=== PATIENT | female | born 1950 | race Caucasian/White ===

== ENCOUNTER 2020-04-07 09:40 | Outpatient (REF) | payer OTHER, SELFPAY ==
--- NOTE | 2020-04-07 | MM_ITS ---
EXAMINATION: MM SCREENING DIGITAL BREAST TOMOSYNTHESIS, BILATERAL CLINICAL INFORMATION: Screening. Asymptomatic. The lifetime risk of breast cancer based on the Tyrer-Cuzick Model is 3%. COMPARISON: Mammography: 04/01/2019, 03/25/2018 TECHNIQUE: Digital breast tomosynthesis is performed in both the craniocaudal and mediolateral oblique views along with computer-aided detection (CAD). Synthesized 2D images are generated from the tomosynthesis. FINDINGS: There are scattered areas of fibroglandular density (ACR BI-RADS breast composition Category b). Parenchymal pattern is similar to prior exams. There is denser tissue composition in the upper outer quadrants as before. There is no significant mass or architectural abnormality or abnormal calcifications. No significant changes. MM/MM tomosynthesis screening BI IMPRESSION: No significant changes from prior studies. ASSESSMENT: BI-RADS 1: Negative RECOMMENDATION: Routine annual mammography screening. This patient's information was entered into a reminder system with a target due date for their next mammogram.
== END 2020-04-07 09:41 | disposition home or self-care (01) ==
LOC: HO.MAMMO 09:40
PROVIDERS: PCP Internal Medicine; Visit Provider Internal Medicine
DX: Z12.31 Encounter for screening mammogram for malignant neoplasm of breast (principal)
CPT/HCPCS: 77063; 77067

== ENCOUNTER 2021-04-19 12:27 | Outpatient (REF) | payer OTHER, SELFPAY ==
--- NOTE | ~2021-04-19 | MM_ITS ---
EXAMINATION: MM SCREENING DIGITAL BREAST TOMOSYNTHESIS, BILATERAL CLINICAL INFORMATION: Screening. Asymptomatic. The lifetime risk of breast cancer based on the Tyrer-Cuzick Model is 3%. COMPARISON: Mammography: 04/07/2020, 04/01/2019, 03/25/2018, 03/06/2017, 03/03/2016 TECHNIQUE: Digital breast tomosynthesis is performed in both the craniocaudal and mediolateral oblique views along with computer-aided detection (CAD). Synthesized 2D images are generated from the tomosynthesis. FINDINGS: There are scattered areas of fibroglandular density (ACR BI-RADS breast composition Category b). Breast tissue composition borders on heterogeneously dense in the upper outer quadrants. There are scattered bilateral stable asymmetries. No developing density. No interval mass or architectural abnormality or abnormal calcifications. The axilla and skin contours are unremarkable. No significant changes from prior exams. MM/MM tomosynthesis screening BI IMPRESSION: No significant changes from prior studies. ASSESSMENT: BI-RADS 2: Benign RECOMMENDATION: Routine annual mammography screening. This patient's information was entered into a reminder system with a target due date for their next mammogram.
== END 2021-04-19 12:28 | disposition home or self-care (01) ==
LOC: HO.MAMMO 12:27
PROVIDERS: PCP Internal Medicine; Visit Provider Internal Medicine
DX: Z12.31 Encounter for screening mammogram for malignant neoplasm of breast (principal)
CPT/HCPCS: 77063; 77067

== ENCOUNTER 2022-09-25 13:01 | Outpatient (REF) | payer OTHER, SELFPAY ==
--- NOTE | ~2022-09-25 | MM_ITS ---
EXAMINATION: MM SCREENING DIGITAL BREAST TOMOSYNTHESIS, BILATERAL CLINICAL INFORMATION: Screening. Asymptomatic. The lifetime risk of breast cancer based on the Tyrer-Cuzick Model is 3.1%. COMPARISON: Mammography: April 19, 2021 and studies dating back to March 03, 2016 TECHNIQUE: Digital breast tomosynthesis is performed in both the craniocaudal and mediolateral oblique views along with computer-aided detection (CAD). Synthesized 2D images are generated from the tomosynthesis. FINDINGS: The breasts are heterogeneously dense, which may obscure small masses (ACR BI-RADS breast composition Category c). There are no significant masses, abnormal calcifications, or other abnormalities. MM/MM tomosynthesis screening BI IMPRESSION: No significant changes from prior exam. ASSESSMENT: BI-RADS 1: Negative RECOMMENDATION: Routine annual mammography screening. This patient's information was entered into a reminder system with a target due date for their next mammogram.
== END 2022-09-25 13:02 | disposition home or self-care (01) ==
LOC: HO.MAMMO 13:01
PROVIDERS: PCP Internal Medicine; Visit Provider Internal Medicine
DX: Z12.31 Encounter for screening mammogram for malignant neoplasm of breast (principal)
CPT/HCPCS: 77063; 77067

== ENCOUNTER 2022-10-16 13:05 | Outpatient (REF) | payer OTHER, SELFPAY ==
[2022-10-16 15:07] LABS: Erythrocyte Sedimentation Rate 18 MM/HR (0-20)
[2022-10-21 10:53] LABS: Immunoglobulin E 65 kU/L (<OR=114)
== END 2022-10-16 13:06 | disposition home or self-care (01) ==
LOC: HO.LAB 13:05
PROVIDERS: PCP Internal Medicine; Visit Provider Hospitalist
DX: J31.0 Chronic rhinitis (principal); R05.3 Chronic cough
CPT/HCPCS: 36415; 82785; 85652; 86003

== ENCOUNTER 2022-10-30 13:45 | Outpatient (REF) | payer OTHER, SELFPAY ==
--- NOTE | 2022-10-30 14:40 | PFT_ITS ---
Forced vital capacity 112%, FEV1 116%, FEV1/FVC ratio 78. FEF 25-75 is 125% and MVV 131%. Post bronchodilator therapy, there is no significant change. Total lung capacity 104% and residual volume 97%. Diffusion capacity 68%. CONCLUSION: Normal pulmonary function test and there is no evidence of obstructive or restrictive pulmonary disorder. Clinical correlation recommended. MD DEMETRIO Link/ADAMS / [id number]
== END 2022-10-30 13:46 | disposition home or self-care (01) ==
LOC: HO.RESP 13:45
PROVIDERS: PCP Internal Medicine; Visit Provider Hospitalist
DX: R05.3 Chronic cough (principal); J31.0 Chronic rhinitis
CPT/HCPCS: 94010; 94727; 94729

== ENCOUNTER 2022-12-16 13:59 | Outpatient (REF) | payer OTHER, SELFPAY ==
--- NOTE | ~2022-12-16 | XR_ITS ---
EXAMINATION: XR CHEST CLINICAL INFORMATION: Chronic cough COMPARISON: None available. TECHNIQUE: 2 views of the chest were obtained. FINDINGS: Cardia mediastinal silhouette is normal. Clear lungs without consolidation, pleural effusion or pneumothorax. Mild spondylitic changes in the thoracic spine. XR/XR chest 2V IMPRESSION: No acute cardiopulmonary process.
== END 2022-12-16 14:00 | disposition home or self-care (01) ==
LOC: CF 13:59
PROVIDERS: PCP Internal Medicine; Visit Provider Hospitalist
DX: J31.0 Chronic rhinitis (principal); R05.3 Chronic cough
CPT/HCPCS: 71046

== ENCOUNTER 2022-12-16 13:59 | Outpatient (AMB) | payer OTHER, SELFPAY ==
[2022-12-16 14:03] VITALS: BP 128/60; PULSE 89; O2SAT 98; BMI 29.2
--- NOTE | 2022-12-16 14:03 | MHC.OFFVIS ---
Intake Vital Signs 12/16/22 14:03 Height 5 ft 6 in Weight 180 lb 12.465 oz BMI 29.2 BP 128/60 Blood Pressure Location Lt brachial Position Sitting Pulse 89 Pulse Source Pulse Oximeter Pulse Oximetry (%) 98 Oxygen Delivery Method Room Air Intake Visit Reasons: Cough Conference Services Director Required: No Allergies amlodipine Adverse Reaction (Unknown, Verified 12/16/22 14:05) leg cramps losartan Adverse Reaction (Unknown, Verified 12/16/22 14:05) cough nebivolol [Bystolic] Adverse Reaction (Unknown, Verified 12/16/22 14:05) leg edema, coughing MAKSIM inhibitors Adverse Reaction (Unknown, Uncoded 12/16/22 14:05) cough HPI HPI Comments History of Present Illness Details The patient is a 72-year-old woman with a known history high blood pressure. She also had long history of chronic cough. Patient states that she initially started with a cough once she has developed hypertension. Patient started taking hypertensive medications and that was ultimately brought worsening her cough. Subsequently after that she noticed that when she develops a cold or bronchitis that will going to her lungs then ultimately require medications to help with the symptoms. Typically when that happened she will go to an urgent care and she will be evaluated there. Subsequently after that the patient developed COVID-19 and she noticed her cough worsen. The patient has been no better. The patient has taking allergy medications with no significant improvement. She has also use the Tessalon Perles with no significant improvement. The patient does use cough drops however that gives some relief she does complaint of postnasal drip and nasal congestion. Usually worse when she lays flat she denies any significant reflux disease. As far as animals in the house she used to have up dog but many years ago. Denies any significant exposure to any fumes or toxins. She does live in an old house and may likely have mold. 12/16/2022 the patient is here for a pulmonary follow-up visit. The patient overall is doing a little better. After starting the fluticasone nasal spray in the nasal rinsing she was doing a lot better. The cough subsided completely. For about 2 weeks. Then after getting the pulmonary function studies she started coughing up again. Although has not been as significant. She does have a rescue inhaler that she uses as needed. She seemed partial resolution with the inhaler. Her PFTs were reassuring without any evidence of any obstructive nor restrictive ventilatory defects. She does have a mild diffusion impairment does isolated. Her blood work also demonstrated an IgE level of 71 which is high normal. Her allergy testing was negative for all the a common environmental allergens that were checked in the blood. All this is reassuring. The patient definitely has a cough that is related to an upper airway cough syndrome. She is going to start using a 1st generation antihistamine therapy and also could consider cough suppressants to maintain the cough under control. She has not gotten her x-ray. Will go ahead and follow up with the x-ray. If the x-ray is abnormal I will let her know that she will need additional imaging studies. Otherwise will follow-up in the springtime. [facility] Medical History (Updated 12/16/22 @ 23:23 by Peter Main MD) Chronic cough Chronic rhinitis Social History (Updated 10/16/22 @ 13:14 by MIGNON Nails) Patient Tobacco Use Status: Never used Tobacco Review of Systems Const Denies fever(s) Eyes Denies change in vision ENT Reports nasal congestion, Reports nasal discharge and Reports post nasal drip Card Denies chest pain Resp Reports cough GI Denies abdominal pain, Denies dyspepsia and Denies heartburn Musc Reports no additional complaints Skin/Breast Denies rash Neuro Reports no additional complaints Ben/Lymph Denies easy bleeding and Denies easy bruising Physical Exam Vital Signs: Last Vital Signs Pulse 89 12/16/22 14:03 BP 128/60 12/16/22 14:03 Pulse Ox 98 12/16/22 14:03 Oxygen Delivery Method Room Air 12/16/22 14:03 BMI result Body Mass Index 29.2 Const General: comfortable Orientation/consciousness: patient oriented x3 HEENT Head: Yes atraumatic Eyes General: appearance normal, both eyes and all related structures Neck Neck: Yes supple Chest Chest palpation & inspection: normal inspection of the chest Resp Effort & Inspection: normal respiratory effort Auscultation: clear to auscultation bilaterally, no rales, no rhonchi and no wheezes Cardio Rate: regular rate Rhythm: regular rhythm Heart sounds: S1 normal heart sound present and S2 normal heart sound present GI Palpation (GI): Soft to palpation Skin General skin exam: no rashes or lesions noted Neuro General: patient oriented x3 Extrem General: Yes no clubbing, cyanosis or edema Assessment & Plan Assessment & Plan (1) Chronic rhinitis: Code(s): J31.0 - Chronic rhinitis (2) Chronic cough: Comment: ? cough variant asthma. Her PFTs were very good, but then activated her cough after the PFTs. Has a component of upper airway cough syndrome Code(s): R05.3 - Chronic cough Plan continue AARON as needed bloodwork/allergy testing was normal PFTs done only with mild diffusion impairment CXR pending nasal rinsing continue Fluticasone nasal spray HOB elevated reflux diet F/U Spring 2023 Coding Level of Care Code Est Pt Level 4 (89043) Diagnoses Chronic rhinitis J31.0 Chronic cough R05.3 Time Spent (min) 20
== END 2022-12-16 14:29 | disposition home or self-care (01) ==
PROVIDERS: PCP Internal Medicine; Visit Provider Hospitalist
DX: J31.0 Chronic rhinitis (principal); R05.3 Chronic cough
CPT/HCPCS: 99214

== ENCOUNTER 2023-08-18 13:52 | Outpatient (AMB) | payer OTHER, SELFPAY ==
[2023-08-18 13:55] VITALS: BP 150/64; PULSE 74; O2SAT 97; BMI 28.6
--- NOTE | 2023-08-18 13:55 | A.OFFVIS_ITS ---
Intake Vital Signs 08/18/23 13:55 Height 5 ft 6 in Weight 177 lb 7.554 oz BMI 28.6 BP 150/64 H Blood Pressure Location Lt brachial Position Sitting Pulse 74 Pulse Source Pulse Oximeter Pulse Oximetry (%) 97 Oxygen Delivery Method Room Air Intake Visit Reasons: Cough Senior Ui Ux Developer Required: No Agriculture Research Director: Agriculture Research Director offered & declined Accompanied by: Self / Same As Patient Allergies amlodipine Adverse Reaction (Unknown, Verified 08/18/23 13:58) leg cramps losartan Adverse Reaction (Unknown, Verified 08/18/23 13:58) cough nebivolol [Bystolic] Adverse Reaction (Unknown, Verified 08/18/23 13:58) leg edema, coughing MAKSIM inhibitors Adverse Reaction (Unknown, Uncoded 08/18/23 13:58) cough Medication List - Last Reconciled 08/18/23 by Jerri Segovia LPN albuterol sulfate 90 mcg/actuation 2 inhalations inhalation Q6H PRN 30 days ferrous sulfate 325 mg PO DAILY fluticasone propionate 50 mcg/actuation 2 sprays intranasal DAILY glipizide ER 2.5 mg PO DAILY hydrochlorothiazide 12.5 mg PO DAILY metformin ER 500 mg PO BID olmesartan 20 mg PO DAILY pantoprazole 40 mg PO DAILY rosuvastatin 20 mg PO BEDTIME HPI HPI Comments History of Present Illness Details The patient is a 73-year-old woman with a known history high blood pressure. She also had long history of chronic cough. Patient states that she initially started with a cough once she has developed hypertension. Patient started taking hypertensive medications and that was ultimately brought worsening her cough. Subsequently after that she noticed that when she develops a cold or bronchitis that will going to her lungs then ultimately require medications to help with the symptoms. Typically when that happened she will go to an urgent care and she will be evaluated there. Subsequently after that the patient developed COVID-19 and she noticed her cough worsen. The patient has been no better. The patient has taking allergy medications with no significant improvement. She has also use the Tessalon Perles with no significant improvement. The patient does use cough drops however that gives some relief she does complaint of postnasal drip and nasal congestion. Usually worse when she lays flat she denies any significant reflux disease. As far as animals in the house she used to have up dog but many years ago. Denies any significant exposure to any fumes or toxins. She does live in an old house and may likely have mold. 12/16/2022 the patient is here for a pulm onary follow-up visit. The patient overall is doing a little better. After starting the fluticasone nasal spray in the nasal rinsing she was doing a lot better. The cough subsided completely. For about 2 weeks. Then after getting the pulmonary function studies she started coughing up again. Although has not been as significant. She does have a rescue inhaler that she uses as needed. She seemed partial resolution with the inhaler. Her PFTs were reassuring without any evidence of any obstructive nor restrictive ventilatory defects. She does have a mild diffusion impairment does isolated. Her blood work also demonstrated an IgE level of 71 which is high normal. Her allergy testing was negative for all the a common environmental allergens that were checked in the blood. All this is reassuring. The patient definitely has a cough that is related to an upper airway cough syndrome. She is going to start using a 1st generation antihistamine therapy and also could consider cough suppressants to maintain the cough under control. She has not gotten her x-ray. Will go ahead and follow up with the x-ray. If the x-ray is abnormal I will let her know that she will need additional imaging studies. Otherwise will follow-up in the springtime. 08/18/2023 the patient is here for a pulmonary follow-up visit. The patient since we spoke did have an admission to [facility]. She started developing worsening shortness of breath even with minimal activity. Also had increased heart rate. Initially she just thought she just had a respiratory virus. But then took her to [facility]. She was found to have a hemoglobin of 5. She was given 3 units of blood. She did have a GI evaluation. Had a limited colonoscopy. Her EGD demonstrated significant erosive esophagitis. She was placed on a PPI twice a day and her cough is significantly improved. She is trying to continue with the reflux diet and continues to sleep elevated. Right now she understands that her cough is related to his reflux disease. Now that she is on the medication she is doing overall better. Her last chest x-ray was clear. Although she continues to be symptomatic or recurrence we can also consider getting a CT scan of the chest. She will be following up with GI and also with surgery. Still the cause of the anemia is not clear. We did again review her PFTs which demonstrated slight mild diffusion impairment. This is likely the beginning her anemia. Otherwise PFTs were normal. The patient will follow up as needed basis. [facility] Medical History (Updated 08/18/23 @ 21:31 by Peter Main MD) Chronic rhinitis Chronic cough Social History (Updated 08/18/23 @ 14:01 by Jerri Segovia LPN) Patient Tobacco Use Status: Never used Tobacco Smoked in Last 30 Days: No Review of Systems Const Denies fever(s) Eyes Denies change in vision ENT Reports nasal congestion and Reports nasal discharge Card Denies chest pain Resp Reports cough GI Denies abdominal pain, Denies dyspepsia and Denies heartburn Musc Reports no additional complaints Skin/Breast Denies rash Neuro Reports no additional complaints Ben/Lymph Denies easy bleeding and Denies easy bruising Physical Exam Vital Signs: Last Vital Signs Pulse 74 08/18/23 13:55 BP 150/64 H 08/18/23 13:55 Pulse Ox 97 08/18/23 13:55 Oxygen Delivery Method Room Air 08/18/23 13:55 BMI result Body Mass Index 28.6 Const General: comfortable Orientation/consciousness: patient oriented x3 HEENT Head: Yes atraumatic Eyes General: appearance normal, both eyes and all related structures Neck Neck: Yes supple Chest Chest palpation & inspection: normal inspection of the chest Resp Effort & Inspection: normal respiratory effort Auscultation: clear to auscultation bilaterally, no rales, no rhonchi and no wh eezes Cardio Rate: regular rate Rhythm: regular rhythm Heart sounds: S1 normal heart sound present and S2 normal heart sound present GI Palpation (GI): Soft to palpation Skin General skin exam: no rashes or lesions noted Neuro General: patient oriented x3 Extrem General: Yes no clubbing, cyanosis or edema Assessment & Plan Assessment & Plan (1) Chronic rhinitis: Code(s): J31.0 - Chronic rhinitis (2) Chronic cough: Comment: Likely GERD related cough. Possibly pharyngeal/Laryngeal penetration which could also result in reactive airway disease Code(s): R05.3 - Chronic cough Plan continue AARON as needed nasal rinsing HOB elevated continue PPI reflux diet F/U PRN Coding Level of Care Code Est Pt Level 4 (67847) Diagnoses Chronic rhinitis J31.0 Chronic cough R05.3 Time Spent (min) 18
== END 2023-08-18 14:48 | disposition home or self-care (01) ==
PROVIDERS: PCP Internal Medicine; Visit Provider Hospitalist
DX: J31.0 Chronic rhinitis (principal); R05.3 Chronic cough
CPT/HCPCS: 99214

== ENCOUNTER → 2023-08-18 13:52 | Outpatient (BNVA) | payer OTHER, SELFPAY | PROVIDERS: PCP Internal Medicine; Visit Provider Hospitalist ==

== ENCOUNTER 2023-09-24 07:53 | Outpatient (AMB) | payer OTHER, SELFPAY ==
--- NOTE | 2023-09-24 08:02 | A.OFFVIS_ITS ---
Intake Vital Signs 09/24/23 08:14 Height 5 ft 6 in Weight 177 lb 7.554 oz BMI 28.6 Intake Visit Reasons: colonoscopy screening Intake Note: This patient presents for a colonoscopy screening assessment. Pt c/o; reports had a critical lab of hemoglobin of 6, reports had a colonoscopy/EGD August 2023 at [facility], reports will be getting 3 units of blood tomorrow 09/25/2023. School Health Assistant Required: No Accompanied by: Self / Same As Patient Allergies amlodipine Adverse Reaction (Unknown, Verified 09/24/23 08:12) leg cramps losartan Adverse Reaction (Unknown, Verified 09/24/23 08:12) cough nebivolol [Bystolic] Adverse Reaction (Unknown, Verified 09/24/23 08:12) leg edema, coughing MAKSIM inhibitors Adverse Reaction (Unknown, Uncoded 09/24/23 08:12) cough Medication List - Last Reconciled 09/24/23 by Adams Arevalo MD albuterol sulfate 90 mcg/actuation 2 inhalations inhalation Q6H PRN 30 days ferrous sulfate 325 mg PO DAILY fluticasone propionate 50 mcg/actuation 2 sprays intranasal DAILY glipizide ER 2.5 mg PO DAILY hydrochlorothiazide 12.5 mg PO DAILY metformin ER 500 mg PO BID olmesartan 20 mg PO DAILY pantoprazole 40 mg PO DAILY rosuvastatin 20 mg PO BEDTIME HPI colonoscopy screening HPI Details 73-year-old female referred for colonosc opy. She actually was admitted to [facility] last month because of palpitations and shortness of breath. She was noted to have severe anemia with hemoglobin of 6 at that time. She was transfused 2 units. She had an endoscopy which showed some gastritis. She had a colonoscopy but had poor bowel prep so she was told to repeat this. She otherwise says that she did not really have any abdominal pain or any GI complaints. She did not have any blood in her stools. She says that she only had some dark stools when she took some iron pills but this had stopped after she discontinued her iron pills I did her colonoscopy in 2019. I removed 2 polyps. One was 1 cm in size and I had recommended a follow-up in 5 years She had a repeat H and H's this week and showed that hemoglobin was 6 again so she is to undergo transfusion tomorrow with Dr. Restrepo. She denies any family history of colon cancer. PFSH Medical History (Updated 09/24/23 @ 08:35 by Adams Arevalo MD) Anemia Chronic rhinitis Chronic cough Surgical History History of colonoscopy (~08/2023) History of colonoscopy (~2019) Social History Patient Tobacco Use Status: Never used Tobacco Review of Systems Const Denies chills and Denies fever(s) Card Denies chest pain, Denies dyspnea and Reports dyspnea on exertion Resp Denies cough, Denies dyspnea and Reports dyspnea on exertion GI Denies hematochezia and Denies change in bowel habits Denies hematuria Musc Denies back pain and Denies limited range of motion Neuro Denies focal weakness and Denies convulsions Psych Denies depression and Denies mood swings Physical Exam Vital Signs: BMI result Body Mass Index 28.6 Const General: comfortable and no acute distress Orientation/consciousness: patient oriented x3 Neck Neck: Yes no lymphadenopathy Resp Auscultation: clear to auscultation bilaterally Cardio Rhythm: regular rhythm GI Palpation (GI): Soft to palpation, nontender and no guarding Neuro General: patient oriented x3 Assessment & Plan Assessment & Plan (1) Anemia: Code(s): D64.9 - Anemia, unspecified Plan: She has been anemic and has undergone transfusion. Her EGD was unremarkable. She was sent to me for a colonoscopy as she had poor bowel prep on her colonoscopy last month She denies obvious GI bleed. She looks well otherwise. She denies any GI complaints I reviewed with her the technique of colonoscopy. I discussed the risks including but not limited to bleeding, perforation, as well as the benefits and alternatives. She understands and wants to proceed. Coding Level of Care Code New Pt Level 3 (07674) Diagnoses Anemia D64.9
[2023-09-24 08:14] VITALS: BMI 28.6
== END 2023-09-24 08:32 | disposition home or self-care (01) ==
PROVIDERS: PCP Internal Medicine; Visit Provider Surgery
DX: D64.9 Anemia, unspecified (principal)
CPT/HCPCS: 99203

== ENCOUNTER → 2023-09-24 07:53 | Outpatient (BNVA) | payer OTHER, SELFPAY | PROVIDERS: PCP Internal Medicine; Visit Provider Surgery ==

== ENCOUNTER 2023-09-25 07:01 | Day surgery (SDC) | payer OTHER, SELFPAY ==
[2023-09-28 10:55] VITALS: BMI 28.1
[2023-09-28 10:57] LABS: Glucose, Whole Blood 146 mg/dL (60-115)
--- NOTE | 2023-09-28 10:57 | PC.NURSE ---
POC 146 AT 1058
[2023-09-28] MEDS: Lactated Ringers 1,000 ML 50 ML IVCONT (11:07)
--- NOTE | 2023-09-28 11:16 | HO.ANESPROP2 ---
[facility] Active Problems Active Problems: All Active Problems Anemia (Acute) Chronic rhinitis (Acute) Chronic cough (Acute) Past Medical History Medical History (Updated 09/28/23 @ 08:31 by Eleni Saavedra RN) Hx of hyperlipidemia HTN (hypertension) Diabetes Anemia GERD (gastroesophageal reflux disease) Anemia Chronic rhinitis Chronic cough Family History Family history of problems with anesthesia: No Surgical History Surgical History (Updated 09/28/23 @ 08:30 by Eleni Saavedra RN) Hx of esophagogastroduodenoscopy History of colonoscopy (~08/2023) History of colonoscopy (~2018) History of Problems with Anesthesia: No Social History Social History Patient Tobacco Use Status: Never used Tobacco Are you DNR?: No Advance Directives: No Advance Directives Information Provided: Yes Nutrition Risks: No Nutritional Risk Meds Allergies Allergy/AdvReac Type Severity Reaction Status Date / Time amlodipine AdvReac Unknown leg cramps Verified 09/24/23 08:12 losartan AdvReac Unknown cough Verified 09/24/23 08:12 nebivolol [Bystolic] AdvReac Unknown leg edema, Verified 09/24/23 08:12 coughing MAKSIM inhibitors AdvReac Unknown cough Uncoded 09/24/23 08:12 Active Medications: Current Medications Lactated Ringer's (Lr) 1,000 mls @ 50 mls/hr IVCONT .Q20H MARIANA Last Admin: 09/28/23 11:07 Dose: 50 mls/hr Home Medications ?Medication ?Instructions ?Recorded ?Confirmed ?Last Taken ?Type ferrous sulfate 325 mg (65 mg 325 mg PO DAILY 10/16/22 09/24/23 Unknown History iron) tablet,delayed release glipizide 2.5 mg tablet, extended 2.5 mg PO DAILY 10/16/22 09/24/23 Unknown History release 24 hr hydrochlorothiazide 12.5 mg tablet 12.5 mg PO DAILY 10/16/22 09/24/23 Unknown History metformin 500 mg tablet,extended 500 mg PO BID 10/16/22 09/24/23 Unknown History release 24 hr olmesartan 20 mg tablet 20 mg PO DAILY 10/16/22 09/24/23 Unknown History rosuvastatin 20 mg tablet 20 mg PO BEDTIME 10/16/22 09/24/23 Unknown History pantoprazole 40 mg tablet,delayed 40 mg PO DAILY 08/18/23 09/24/23 Unknown History release Exam Height,Weight and Vital Signs: Height 5 ft 6 in Weight 78.925 kg Pertinent Lab Results Pertinent Lab Results: Laboratory Tests 09/28/23 10:52 POC Glucose 146 H Airway Mallampati Class: II TM Dist: >3cm Neck ROM: Full Loose/Missing/Broken Teeth: No Heart: rrr Lungs: cta Assessment and Plan Assessment Anesthesia Assessment: Anesthesia Plan Discussed and Chart Reviewed Final Anesthetic Review Family History of Problems with Anesthesia: No History of Problems with Anesthesia: No NPO: Yes ASA Class: III Final Preanesthetic Review: No Changes in Pt Med Stat, Meds/Allgs Chart Reviewed, Consent Obtained/Reviewed and Anes Risks/Benef Reviewed Patient Risk: Intermediate Procedure Risk: Intermediate Anesthetic Plan Anesthetic Plan: MAC: Disposition: Standard PACU
--- NOTE | 2023-09-28 11:59 | MHC.SHP ---
Pre-Procedural Eval Section A - 24 Hr Update-Section A only Date of Service: 09/28/23 The patient is an INPATIENT: No Changes since office visit: No Cold of Flu in the past 2 weeks, No New Medical Problems, No Changes in Medication and No Patient answered all questions The patient has been examined within 24 hours of the surgical procedure. The History & Physical has been completed within 30 days and I have reviewed it.: Yes Section B - Complete if H&P > 30 days Chief Complaint: Anemia, unspecified Allergies: Allergies Allergy/AdvReac Type Severity Reaction Status Date / Time amlodipine AdvReac Unknown leg cramps Verified 09/24/23 08:12 losartan AdvReac Unknown cough Verified 09/24/23 08:12 nebivolol [Bystolic] AdvReac Unknown leg edema, Verified 09/24/23 08:12 coughing MAKSIM inhibitors AdvReac Unknown cough Uncoded 09/24/23 08:12 Plan I have reviewed the history and physical and performed a pertinent physical examination on my patient. No changes have occurred unless specified. Time Spent With Patient Time: Total time managing care of this patient today ____ minutes.
--- NOTE | 2023-09-28 12:49 | P.OP_ITS ---
Operative Note Operative Note Date of Service: 09/28/23 Narrative: Preop diagnosis: anemia Postop diagnosis: 1. moderate diverticulosis, sigmoid and left colon 2. external hemorrhoids Procedure: Colonoscopy Surgeon: Adams Arevalo MD The patient is a 73 year old female referred to [facility] for colonoscopy because of anemia requiring transfusions. She had a EGD and colonoscopy done in [place] because of this. The EGD showed some gastritis. The colonoscopy showed adequate bowel prep so she was referred to [facility] for repeat colonoscopy. The patient understood the technique of the procedure as well as the risks, benefits, and alternatives The patient was brought to the operating room and placed in left lateral decubitus position under monitored anesthesia care. A surgical time-out was done. A full digital rectal exam was done and this did not reveal any significant anal lesions. The tip of the Olympus colonoscope was gently introduced through the anal orifice advanced with insufflation all the way to the cecum. The cecum was intubated. The cecum was identified by visualization of the ileocecal valve as well as the appendiceal orifice. The cecal mucosa was unremarkable. The scope was gradually withdrawn with careful examination of the entire colonic mucosa being done with scope withdrawal. There did appear to be some thin coating of liquid stool in the cecum and right colon so we had to do a lot of irrigation to achieve good visualization. Otherwise, the patient had adequate bowel prep so it was unlikely that any lesion may have been missed. The rectum was reached and there were no lesions seen. There was no bleeding noted anywhere throughout the entire colon. The anal canal was unremarkable. She did have large external hemorrhoids. The scope was then withdrawn completely with desufflation The patient tolerated the procedure well. There were no immediate complications. Withdrawal time was about 12 minutes. This may be her last colonoscopy in view of her age with regards to screening. She may need to be seen by senior policy advisor in view of her anemia in the absence of any obvious etiology or bleeding source.
[2023-09-28 12:54] VITALS: BP 109/36; PULSE 99; RESP 19; TEMP 37.1; O2SAT 98
[2023-09-28 13:09] VITALS: BP 114/39; PULSE 90; RESP 18; TEMP 37.1; O2SAT 97
== END 2023-09-28 13:47 | disposition home or self-care (01) ==
PROVIDERS: PCP Internal Medicine; Visit Provider Surgery
PROC: 0DBE8ZZ Excision of Large Intestine, Via Natural or Artificial Opening Endoscopic (ICD-10-PCS; CPT 45378; principal; 2023-09-28 12:00)
DX: D64.9 Anemia, unspecified (principal); Z86.010 Personal history of colon polyps; K57.30 Diverticulosis of large intestine without perforation or abscess without bleeding; K64.4 Residual hemorrhoidal skin tags; I10 Essential (primary) hypertension; E11.9 Type 2 diabetes mellitus without complications; R05.3 Chronic cough; J31.0 Chronic rhinitis; Z79.51 Long term (current) use of inhaled steroids; Z79.84 Long term (current) use of oral hypoglycemic drugs; Z79.899 Other long term (current) drug therapy; Z88.8 Allergy status to other drugs, medicaments and biological substances
CPT/HCPCS: 45378; 82947; J2704

== ENCOUNTER → 2023-09-25 07:01 | Outpatient (BNV) | payer OTHER, SELFPAY | PROVIDERS: PCP Internal Medicine; Visit Provider Surgery | DX: D64.9 Anemia, unspecified (principal); K57.90 Diverticulosis of intestine, part unspecified, without perforation or abscess without bleeding; K64.8 Other hemorrhoids | CPT/HCPCS: 45378 ==

== ENCOUNTER 2023-10-09 13:00 | Outpatient (RCR) | payer OTHER, SELFPAY ==
[2023-09-25] VITALS (7 sets, daily range): BP systolic 116–144; BP diastolic 43–55; PULSE 70–99; RESP 18–20; TEMP 36.6–37; O2SAT 99–100; BMI 27.4
--- NOTE | 2023-09-25 11:19 | HO.INF ---
blood transfusion written documentation
[2023-09-25 14:55] LABS: MANUAL DIFF FLAG NO
[2023-09-25 14:56] LABS: Basophils Absolute Auto 0.1 X10*3/uL (0.0-0.2); Basophils Percent Auto 1.1 % (0-2); Eosinophils Absolute Auto 0.1 X10*3/uL (0.0-0.4); Eosinophils Percent Auto 2.3 % (0-4); Hematocrit 26.7 % (37.0-47.0); Hemoglobin 8.6 g/dl (12.0-16.0); Imm Gran Abs Auto 0.01 X10*3/uL (0.00-0.03); Imm Gran Pct Auto 0.2 % (0.0-0.4); Lymphocytes Absolute Auto 1.4 X10*3/uL (1.2-4.9); Lymphocytes Percent Auto 30.5 % (20-40); Mean Corpuscular HGB Conc 32.2 g/dl (31.0-35.0); Mean Corpuscular Hemoglobin 27.7 pg (27.0-33.0); Mean Corpuscular Volume 85.9 fL (80.0-98.0); Mean Platelet Volume 8.4 fL (9.4-12.3); Monocytes Absolute Auto 0.5 X10*3/uL (0.1-1.2); Monocytes Percent Auto 10.4 % (2-11); Neutrophils Absolute Auto 2.5 x10*3/uL (2.0-8.3); Neutrophils Percent Auto 55.5 % (45-73); Platelet Count 234 X10*3/uL (160-400); Red Blood Count 3.11 X10*6/uL (4.20-5.50); Red Cell Distribution Width 15.8 % (11.0-16.0); White Blood Count 4.4 X10*3/uL (4.8-10.8)
== END 2023-12-30 13:34 | disposition home or self-care (01) ==
LOC: HO.INF 13:00
PROVIDERS: Anesthesiology; Visit Provider Internal Medicine
DX: D64.9 Anemia, unspecified (principal)
CPT/HCPCS: 36415; 36430; 85025; 86850; 86900; 86901; 86920; P9016

== ENCOUNTER 2023-10-12 14:41 | Outpatient (AMB) | payer OTHER, SELFPAY ==
--- NOTE | 2023-10-12 14:42 | A.OFFVIS_ITS ---
Vital Signs 10/12/23 14:45 Height 5 ft 6 in Weight 174 lb BMI 28.1 Intake Visit Reasons: s/p colonoscopy Intake Note: This patient presents for a follow-up status post colonoscopy. Patient c/o; reports no complaints. 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 Accompanied by: Self / Same As Patient Allergies amlodipine Adverse Reaction (Unknown, Verified 10/12/23 14:45) leg cramps losartan Adverse Reaction (Unknown, Verified 10/12/23 14:45) cough nebivolol [Bystolic] Adverse Reaction (Unknown, Verified 10/12/23 14:45) leg edema, coughing MAKSIM inhibitors Adverse Reaction (Unknown, Uncoded 10/12/23 14:45) cough Medication List - Last Reconciled 10/12/23 by Adams Arevalo MD albuterol sulfate 90 mcg/actuation 2 inhalations inhalation Q6H PRN 30 days ferrous sulfate 325 mg PO DAILY fluticasone propionate 50 mcg/actuation 2 sprays intranasal DAILY glipizide ER 2.5 mg PO DAILY hydrochlorothiazide 12.5 mg PO DAILY metformin ER 500 mg PO BID olmesartan 20 mg PO DAILY pantoprazole 40 mg PO DAILY rosuvastatin 20 mg PO BEDTIME sodium,potassium,mag sulfates 17.5-3.13-1.6 gram (Suprep Bowel Prep Kit) DILUTE; drink full amount early evening before AND next morning at least 2 hr before procedure; follow w 960 mL water PO HPI HPI s/p colonoscopy: Details: She underwent colonoscopy 2 weeks ago because of chronic anemia. She tolerated procedure well. She currently denies significant complaints She denies seeing blood per rectum . She denies seeing any old blood or any vomiting. Denies any GI complaints or abdominal pain. [facility] Medical History Hx of hyperlipidemia HTN (hypertension) Diabetes Anemia GERD (gastroesophageal reflux disease) Anemia Chronic rhinitis Chronic cough Surgical History Hx of colonoscopy (~09/28/23) Hx of esophagogastroduodenoscopy History of colonoscopy (~08/2023) History of colonoscopy (~2018) Social History Patient Tobacco Use Status: Never used Tobacco Review of Systems Const Denies chills and Denies fever(s) Card Denies chest pain, Denies dyspnea and Denies dyspnea on exertion Resp Denies cough, Denies dyspnea and Denies dyspnea on exertion GI Denies hematochezia and Denies change in bowel habits Denies hematuria Musc Denies back pain and Denies limited range of motion Neuro Denies focal weakness and Denies convulsions Psych Denies depression and Denies mood swings Physical Exam Vital Signs: BMI result Body Mass Index 28.1 Const General: comfortable and no acute distress Orientation/consciousness: patient oriented x3 Neck Neck: Yes no lymphadenopathy Resp Auscultation: clear to auscultation bilaterally Cardio Rhythm: regular rhythm GI Palpation (GI): Soft to palpation, nontender and no guarding Neuro General: patient oriented x3 Assessment & Plan Assessment & Plan (1) Anemia: Comment: iron deficiency anemia Code(s): D64.9 - Anemia, unspecified Category: Medical Plan: Status post colonoscopy. Her colonoscopy was unremarkable. There has no explanation for anemia. It does not appear that this is secondary to blood loss as she does not have any signs or symptoms pointing to any GI bleed. I am going to defer to the negative stripper for her anemia without any significant etiology. She understands the plan well and is comfortable with this. Orders: Referrals Hematology & Oncology Referral D64.9 - Anemia, unspecified Coding Level of Care Code Est Pt Level 2 (31112) Diagnoses Anemia D64.9
[2023-10-12 14:45] VITALS: BMI 28.1
== END 2023-10-12 14:56 | disposition home or self-care (01) ==
PROVIDERS: PCP Internal Medicine; Visit Provider Surgery
DX: D64.9 Anemia, unspecified (principal)
CPT/HCPCS: 99212

== ENCOUNTER → 2023-10-12 14:41 | Outpatient (BNVA) | payer OTHER, SELFPAY | PROVIDERS: PCP Internal Medicine; Visit Provider Surgery ==

== ENCOUNTER 2023-10-15 14:06 | Outpatient (REF) | payer OTHER, SELFPAY | END 2023-10-15 14:07 | disposition home or self-care (01) | LOC: HO.MAMMO 14:06 | PROVIDERS: PCP Internal Medicine; Visit Provider Internal Medicine | DX: Z12.31 Encounter for screening mammogram for malignant neoplasm of breast (principal) | CPT/HCPCS: 77063; 77067 ==

== ENCOUNTER → 2023-10-15 14:30 | Outpatient (BNV) | payer OTHER, SELFPAY | PROVIDERS: PCP Internal Medicine; Visit Provider Radiology Diagnostic Radiology | DX: Z12.31 Encounter for screening mammogram for malignant neoplasm of breast (principal) | CPT/HCPCS: 77063; 77067 ==

== ENCOUNTER → 2023-10-22 11:05 | Outpatient (BNV) | payer OTHER, SELFPAY | PROVIDERS: PCP Internal Medicine; Referring Provider Surgery; Visit Provider Internal Medicine Medical Oncology | DX: D50.9 Iron deficiency anemia, unspecified (principal) | CPT/HCPCS: 99204; 99213 ==

== ENCOUNTER 2023-11-06 15:27 | Emergency (ER) | payer OTHER, SELFPAY ==
[2023-11-06] VITALS (12 sets, daily range): BP systolic 102–154; BP diastolic 41–63; PULSE 75–103; RESP 15–20; TEMP 36.5–36.9; O2SAT 96–99; BMI 30.2
--- NOTE | 2023-11-06 15:39 | ED_ITS ---
HPI - General Adult General Chief complaint: Recheck/Abnormal Lab/Rx Stated complaint: need a couple units of blood per dr? Time Seen by Provider: 11/06/23 16:07 Source: patient Mode of arrival: ambulatory Limitations: no limitations History of Present Illness ED Provider: Chito Lei PA-C HPI narrative: 73-year-old female with history of diabetes and hypertension, recently diagnosed normocytic, normochromic anemia in August requiring blood transfusion who presents to the ER today for symptomatic anemia. She has been following with Dr. Anaya for evaluation of recurrent anemia. She states she initially presented to [facility] in August where she was found have a hemoglobin of 5. At the time she had a throbbing headache, was very fatigued and short of breath. She was admitted had negative GI workup including negative upper endoscopy and colonoscopy. She was transfused 3 units of blood at that time. Later in September she required another blood transfusion of 2 units. A repeat colonoscopy was performed by Dr. Arevalo and was normal. She was then referred to Dr. Anaya for further workup. She had an iron transfusion yesterday. Hemoglobin on labs from yesterday was 7.2. Dr. Anaya advised her to come to the ER for transfusion as the transfusion center was closed. Patient reports being fatigued and dyspneic on exertion. She has no headache associated this time. She has no chest pain. She denies any melena or signs or symptoms of bleeding. She is a registered nurse MD complaint: Symptomatic anemia Onset (ago): day(s) Severity: moderate Pain Consistency: intermittent Relieving factors: rest Associated symptoms: malaise and shortness of breath Treatments prior to arrival: none Related Data Home Medications ?Medication ?Instructions ?Recorded ?Confirmed ferrous sulfate 325 mg (65 mg 325 mg PO DAILY 10/16/22 11/06/23 iron) tablet,delayed release glipizide 2.5 mg tablet, extended 2.5 mg PO DAILY 10/16/22 11/06/23 release 24 hr hydrochlorothiazide 12.5 mg tablet 12.5 mg PO DAILY 10/16/22 11/06/23 metformin 500 mg tablet,extended 500 mg PO BID 10/16/22 11/06/23 release 24 hr olmesartan 20 mg tablet 20 mg PO DAILY 10/16/22 11/06/23 rosuvastatin 20 mg tablet 20 mg PO BEDTIME 10/16/22 11/06/23 Previous Rx's ?Medication ?Instructions ?Recorded albuterol sulfate 90 mcg/actuation 2 inh inhalation Q6H PRN shortness 10/16/22 aerosol inhaler of breath or wheezing 30 days #18 grams pantoprazole 40 mg tablet,delayed 40 mg PO DAILY #30 tabs 10/22/23 release (Protonix) Allergies Allergy/AdvReac Type Severity Reaction Status Date / Time amlodipine AdvReac Unknown leg cramps Verified 11/06/23 15:42 losartan AdvReac Unknown cough Verified 11/06/23 15:42 nebivolol [Bystolic] AdvReac Unknown leg edema, Verified 11/06/23 15:42 coughing MAKSIM inhibitors AdvReac Unknown cough Uncoded 11/06/23 14:39 Review of Systems 2 Review of Systems: Yes all other systems are reviewed and are negative PMFSH Past Medical History Medical History Hx of hyperlipidemia HTN (hypertension) Diabetes Anemia GERD (gastroesophageal reflux disease) Anemia Chronic rhinitis Chronic cough Surgical History Hx of colonoscopy (~09/28/23) Hx of esophagogastroduodenoscopy History of colonoscopy (~08/2023) History of colonoscopy (~2018) Social History Social History Household Members: Family Patient Tobacco Use Status: Never used Tobacco Smoked in Last 30 Days: No Use of substances other than those prescribed or required for medical reasons: No Advance Directives: No Advance Directives Information Provided: No Do you have a plan to hurt others: No Plan service: No Current occupational status: employed and retired Physical Exam ED Vital Signs: Vital Signs - 24 hr 11/06/23 15:40 11/06/23 16:36 11/06/23 16:56 Temperature 98.3 F 98.2 F 97.7 F Pulse Rate 100 103 H 97 Respiratory Rate 18 16 18 Blood Pressure 154/55 H 104/41 L 128/47 L Pulse Oximetry 97 Oxygen Delivery Method Room Air 11/06/23 18:13 11/06/23 18:50 11/06/23 19:07 Temperature 97.8 F 97.7 F 97.9 F Pulse Rate 81 87 75 Respiratory Rate 15 20 18 Blood Pressure 102/50 L 135/62 117/46 L Pulse Oximetry 96 Oxygen Delivery Method Room Air 11/06/23 19:38 11/06/23 19:55 11/06/23 20:05 Temperature 98.4 F 98.2 F 98.2 F Pulse Rate 85 81 81 Respiratory Rate 20 16 18 Blood Pressure 110/44 L 109/52 L 109/52 L Pulse Oximetry 99 Oxygen Delivery Method Room Air BMI result Body Mass Index 30.2 Appearance: Alert. Oriented X3. No acute distress. Head: normocephalic, atraumatic. Eyes: Pupils equal, round and reactive to light. Conjunctival pallor is present ENT: Pharynx normal. No tonsillar swelling or exudate. Neck: Normal inspection. Neck supple. CVS: Normal heart rate and rhythm. Pulses normal. Respiratory: No respiratory distress. Breath sounds normal. Abdomen: Soft and nontender. +BS x4 Skin: Skin warm and dry. Normal skin color. Normal skin turgor. No rashes. Extremities: No lower extremity edema. No joint swelling. Neuro/psych: Oriented X 3. No motor deficit. No sensory deficit. CN II-XII intact. Normal speech and cognition. Course Course Course Narrative: This is a Rapid Medical Examination (RME) performed by Andre Borja PA-C in triage. Full HPI, ROS, assessment and treatment plan per primary provider in the Main ED. 73 yo female hx of HTN, HDL, anemia, DM, GERD here w/ low H&H levels. Clarice ORTIZ received expect from Dr. Anaya regarding patient. reports feeling dizzy and light headed. endorses Hgb of 5 in August at [facility]. received transfusion. negative GI bleed work up. was referred to Dr. Anaya due to anemia. Was called today d/t H&H 7.2/22.2. Dr. Anaya is requesting trans Plan: labs, type and screen ordered Medications Administered Discontinued Medications Generic Name Dose Route Start Last Admin Trade Name Freq PRN Reason Stop Dose Admin Sodium Chloride 100 mls @ 100 mls/hr 11/06/23 15:34 11/06/23 19:09 Ns IV 11/06/23 16:33 Infused ONCE ONE Infusion Sodium Chloride 100 mls @ 100 mls/hr 11/06/23 15:34 11/06/23 19:42 Ns IV 11/06/23 16:33 100 mls/hr ONCE ONE Administration Medical Decision Making Medical Decision Making [facility] Narrative: 73-year-old female with recently diagnosed normocytic, normochromic anemia requiring blood transfusions twice in the last 3 months presents back to the ER for blood transfusion today. No evidence of GI bleeding. She is extensive GI workup. She has not on anticoagulation. Repeat hemoglobin today was 7.4. No signs of active GI bleeding. Hemodynamically stable. She was transfused 2 units of packed red blood cells while in the emergency department. She is feeling better. She would like to go home. Dr. Anaya comfortable with discharging the patient home with further outpatient workup and management. She previously got blood transfusions in the transfusion center. Differential Diagnosis Differential Diagnoses: The differential diagnosis associated with the presentation includes Iron-deficiency anemia, acute blood loss anemia, hemolytic anemia, myelodysplastic syndrome Admission/Observation Consideration of admission/observation: Escalation of care including admission/observation considered Consult Healthcare Provider Management of the patient was discussed with: Home Aide Lab Data [facility] Lab Attestation statement: I reviewed the patient's lab results. 11/06/23 15:47 11/06/23 15:46 Labs: Lab Results 11/06/23 11/06/23 11/06/23 Range/Units 14:43 15:46 15:47 WBC 4.8 (4.8-10.8) X10*3/uL RBC 2.55 L (4.20-5.50) X10*6/uL Hgb 7.4 L (12.0-16.0) g/dl Hct 22.6 L (37.0-47.0) % MCV 88.6 (80.0-98.0) fL MCH 29.0 (27.0-33.0) pg MCHC 32.7 (31.0-35.0) g/dl RDW 16.6 H (11.0-16.0) % Plt Count 240 (160-400) X10*3/uL MPV 8.7 L (9.4-12.3) fL Immature Gran % (Auto) 0.4 (0.0-0.4) % Neut % (Auto) 65.1 (45-73) % Lymph % (Auto) 22.9 (20-40) % [place] % (Auto) 8.9 (2-11) % Eos % (Auto) 1.9 (0-4) % Baso % (Auto) 0.8 (0-2) % Lymph # (Auto) 1.1 L (1.2-4.9) X10*3/uL [place] # (Auto) 0.4 (0.1-1.2) X10*3/uL Eos # (Auto) 0.1 (0.0-0.4) X10*3/uL Baso # (Auto) 0.0 (0.0-0.2) X10*3/uL Abs Immat Gran (auto) 0.02 (0.00-0.03) X10*3/uL Absolute Neuts (auto) 3.2 (2.0-8.3) x10*3/uL Absolute Nucleated RBC 0.000 (0.0-0.012) X10*3/uL Nucleated RBC % (auto) 0.0 (0.0-0.2) /100WBC Sodium 142 (135-145) mmol/L Potassium 4.6 (3.3-5.1) mmol/L Chloride 112 H (96-108) mmol/L Carbon Dioxide 22 (22-29) mmol/L Anion Gap 13 (12-20) BUN 40 H (9-16) mg/dL Creatinine 1.27 (0.5-1.4) mg/dL Estim Creat Clear Calc 42.0 Estimated GFR 41 Random Glucose 154 H (60-115) mg/dL Calcium 9.5 (8.4-10.2) mg/dL Magnesium 1.9 (1.6-2.6) mg/dL Total Bilirubin 0.3 (0.0-1.0) mg/dL AST 13 (5-31) U/L ALT 9 (0-31) U/L Alkaline Phosphatase 69 (39-117) U/L Total Protein 6.7 (6.5-8.0) g/dL Albumin 4.0 (3.5-5.0) g/dL Urine Color Urine Appearance Urine pH (5.0-9.0) Ur Specific [place] (1.005-1.025) Urine Protein (Neg-Trace) mg/dL Urine Glucose (UA) (Negative) mg/dL Urine Ketones (Negative) mg/dL Urine Blood (Negative) Urine Nitrite (Negative) Ur Leukocyte Esterase (Negative) Urine RBC (0-2) /HPF Urine WBC (0-5) /HPF Ur Squamous Epith Cells (0-2) /HPF Urine Bacteria (None Seen) Hyaline Casts (0-2) /LPF Blood Type O Negative Antibody Screen NEGATIVE Crossmatch See Detail 11/06/23 Range/Units 19:07 WBC (4.8-10.8) X10*3/uL RBC (4.20-5.50) X10*6/uL Hgb (12.0-16.0) g/dl Hct (37.0-47.0) % MCV (80.0-98.0) fL MCH (27.0-33.0) pg MCHC (31.0-35.0) g/dl RDW (11.0-16.0) % Plt Count (160-400) X10*3/uL MPV (9.4-12.3) fL Immature Gran % (Auto) (0.0-0.4) % Neut % (Auto) (45-73) % Lymph % (Auto) (20-40) % [place] % (Auto) (2-11) % Eos % (Auto) (0-4) % Baso % (Auto) (0-2) % Lymph # (Auto) (1.2-4.9) X10*3/uL [place] # (Auto) (0.1-1.2) X10*3/uL Eos # (Auto) (0.0-0.4) X10*3/uL Baso # (Auto) (0.0-0.2) X10*3/uL Abs Immat Gran (auto) (0.00-0.03) X10*3/uL Absolute Neuts (auto) (2.0-8.3) x10*3/uL Absolute Nucleated RBC (0.0-0.012) X10*3/uL Nucleated RBC % (auto) (0.0-0.2) /100WBC Sodium (135-145) mmol/L Potassium (3.3-5.1) mmol/L Chloride (96-108) mmol/L Carbon Dioxide (22-29) mmol/L Anion Gap (12-20) BUN (9-16) mg/dL Creatinine (0.5-1.4) mg/dL Estim Creat Clear Calc Estimated GFR Random Glucose (60-115) mg/dL Calcium (8.4-10.2) mg/dL Magnesium (1.6-2.6) mg/dL Total Bilirubin (0.0-1.0) mg/dL AST (5-31) U/L ALT (0-31) U/L Alkaline Phosphatase (39-117) U/L Total Protein (6.5-8.0) g/dL Albumin (3.5-5.0) g/dL Urine Color Yellow Urine Appearance Clear Urine pH 5.5 (5.0-9.0) Ur Specific [place] 1.020 (1.005-1.025) Urine Protein Negative (Neg-Trace) mg/dL Urine Glucose (UA) Negative (Negative) mg/dL Urine Ketones Negative (Negative) mg/dL Urine Blood Negative (Negative) Urine Nitrite Negative (Negative) Ur Leukocyte Esterase Small (1+) H (Negative) Urine RBC 0-2 (0-2) /HPF Urine WBC 6-10 H (0-5) /HPF Ur Squamous Epith Cells 0-2 (0-2) /HPF Urine Bacteria None Seen (None Seen) Hyaline Casts 0-2 (0-2) /LPF Blood Type Antibody Screen Crossmatch External Record Review External record reviewed: Office record, Outpatient record and Prior outpatient labs Chronic Conditions Patient?s care impacted by: Diabetes, Hypertension and Other (Anemia) Critical Care Time Critical Care Time Critical Care Time: Yes Total Critical Care Time: 42 Attestation: I have personally provided critical care time exclusive of time spent on separately billable procedures. Time includes review of lab data, review of chart, discussion with consultants, and monitoring for potential decompensation. Intervention performed as documented. Discharge Plan Discharge Clinical Impression: Symptomatic anemia Patient Disposition: Home, Self-Care Instructions: Anemia (ED) Additional Instructions: You were transfused 2 units of packed red blood cells today. Recommend following up with Dr. Anaya on Thursday. Call the office. If you develop new or worsening symptoms call 911 or come back to the ER for further evaluation. Prescriptions: No Action pantoprazole [Protonix] 40 mg Tablet,Delayed Release (Dr/Ec) 40 mg PO DAILY Qty: 30 0RF hydrochlorothiazide 12.5 mg tablet 12.5 mg PO DAILY ferrous sulfate 325 mg (65 mg iron) tablet,delayed release (DR/EC) 325 mg PO DAILY metformin 500 mg tablet extended release 24 hr 500 mg PO BID olmesartan 20 mg tablet 20 mg PO DAILY glipizide 2.5 mg tablet extended release 24hr 2.5 mg PO DAILY rosuvastatin 20 mg tablet 20 mg PO BEDTIME albuterol sulfate 90 mcg/actuation HFA aerosol inhaler 2 inh inhalation Q6H PRN (Reason: shortness of breath or wheezing) 30 Days Qty: 18 12RF Referrals: [facility] [place] Oncology/Hematology [Provider Group] (Symptomatic anemia, transfused in the ER) Vikki Restrepo MD [Primary Care Provider] - Print Language: Trinidadian
[2023-11-06 15:50] LABS: MANUAL DIFF FLAG NO
[2023-11-06 15:54] LABS: Basophils Percent Auto 0.8 % (0-2); Eosinophils Absolute Auto 0.1 X10*3/uL (0.0-0.4); Eosinophils Percent Auto 1.9 % (0-4); Hematocrit 22.6 % (37.0-47.0); Hemoglobin 7.4 g/dl (12.0-16.0); Imm Gran Abs Auto 0.02 X10*3/uL (0.00-0.03); Imm Gran Pct Auto 0.4 % (0.0-0.4); Lymphocytes Absolute Auto 1.1 X10*3/uL (1.2-4.9); Lymphocytes Percent Auto 22.9 % (20-40); Mean Corpuscular HGB Conc 32.7 g/dl (31.0-35.0); Mean Corpuscular Volume 88.6 fL (80.0-98.0); Mean Platelet Volume 8.7 fL (9.4-12.3); Monocytes Absolute Auto 0.4 X10*3/uL (0.1-1.2); Monocytes Percent Auto 8.9 % (2-11); Neutrophils Absolute Auto 3.2 x10*3/uL (2.0-8.3); Neutrophils Percent Auto 65.1 % (45-73); Platelet Count 240 X10*3/uL (160-400); Red Blood Count 2.55 X10*6/uL (4.20-5.50); Red Cell Distribution Width 16.6 % (11.0-16.0); White Blood Count 4.8 X10*3/uL (4.8-10.8)
[2023-11-06 16:04] LABS: Alanine Aminotransferase 9 U/L (0-31); Alkaline Phosphatase 69 U/L (39-117); Anion Gap 13 (12-20); Aspartate Amino Transferase 13 U/L (5-31); Bilirubin Total 0.3 mg/dL (0.0-1.0); Blood Urea Nitrogen 40 mg/dL (9-16); Calcium 9.5 mg/dL (8.4-10.2); Carbon Dioxide 22 mmol/L (22-29); Chloride 112 mmol/L (96-108); Estimated Glomerular Filt Rate 41; Glucose Random 154 mg/dL (60-115); Magnesium 1.9 mg/dL (1.6-2.6); Potassium 4.6 mmol/L (3.3-5.1); Sodium 142 mmol/L (135-145); Total Protein 6.7 g/dL (6.5-8.0)
--- NOTE | 2023-11-06 16:20 | MHC.EDTECH ---
Pt changed into a hospital gown and placed on a library monitor
--- NOTE | 2023-11-06 16:45 | PC.NURSE ---
pt from hematology. T&S done by them. Per Rosanna at the blood bank, pt is already for transfusion, no additional blood bank labs to be drawn
--- NOTE | 2023-11-06 17:44 | PC.NURSE ---
per pt - recent transfusion each unit was done in 2 hours. Per Violet RASHID, infuse units over 2 hours.
--- NOTE | 2023-11-06 19:08 | PC.NURSE ---
first unit of blood finished transfusing. lung sounds clear. pt has intermittent dry cough - she says it is baseline for her and has been going on for awhile - she is following with PCP
[2023-11-06 19:15] LABS: Appearance Urine Clear; Color Urine Yellow; Glucose Urine UA Negative (Negative); Leukocyte Esterase Urine Small (1+) (Negative); Nitrite Urine Negative (Negative); PH 5.5 (5.0-9.0); UMIC TRIGGER UACC YES; Urine Blood Negative (Negative); Urine Ketones Negative (Negative); Urine Protein Negative (Neg-Trace)
--- NOTE | 2023-11-06 19:16 | MHC.EDTECH ---
THIS TECH TOOK OVER CARE LINE PREP COOK AT 1900
--- NOTE | 2023-11-06 19:24 | PC.NURSE ---
Assumed care of pt at 1915, pt A&O X4, denies pain or shortness of breath, VSS. Tech getting 2nd unit RBC.
--- NOTE | 2023-11-06 20:04 | PC.NURSE ---
Blood running, no reactions at this time. Pt verbalized comfort, call napier in place, no needs at this time.
[2023-11-06 21:22] LABS: Bacteria Urine None Seen (None Seen); Hyaline Casts Urine 0-2 /LPF (0-2); RBC Urine 0-2 /HPF (0-2); Squamous Epithelial Cell Urine 0-2 /HPF (0-2); UACC Culture Trigger YES
== END 2023-11-06 23:06 | disposition home or self-care (01) ==
PROVIDERS: Physician Assistant; Emergency Provider Emergency Medicine Emergency Medical Services; PCP Internal Medicine
DX: D64.9 Anemia, unspecified (principal); R82.71 Bacteriuria; I10 Essential (primary) hypertension; E11.9 Type 2 diabetes mellitus without complications
CPT/HCPCS: 36415; 36430; 80053; 81001; 81003; 83735; 85025; 86850; 86900; 86901; 86923; 87086; 87088; 87186; 96360; 96361; 99284; 99285; P9016

== ENCOUNTER 2023-11-13 08:03 | Outpatient (AMB) | payer OTHER, SELFPAY ==
--- NOTE | 2023-12-06 10:14 | MHC.OFFVIS ---
Intake Visit Reasons: CAPSULE ENDOSCOPY Allergies amlodipine Adverse Reaction (Unknown, Verified 12/03/23 14:37) leg cramps losartan Adverse Reaction (Unknown, Verified 12/03/23 14:37) cough nebivolol [Bystolic] Adverse Reaction (Unknown, Verified 12/03/23 14:37) leg edema, coughing MAKSIM inhibitors Adverse Reaction (Unknown, Uncoded 12/03/23 14:37) cough PFSH Medical History Hx of hyperlipidemia HTN (hypertension) Diabetes Anemia GERD (gastroesophageal reflux disease) Anemia Chronic rhinitis Chronic cough Surgical History Hx of colonoscopy (~09/28/23) Hx of esophagogastroduodenoscopy History of colonoscopy (~08/2023) History of colonoscopy (~2018) Social History Household Members: Family Patient Tobacco Use Status: Never used Tobacco service: No Current occupational status: employed and retired Office Procedures AMB Capsule Endoscopy Procedure Notes: Capsule Endoscopy: Date of Service:11/13/23 Indication: anemia Findings: gastric mucosa normal, duodenum entered at 39 mins. Good views of small intestine. no active bleeding seen possible erosion at terminal ileum, cecum entered at 3 hr 59 min Conclusion: no active bleeding, possible erosion at the terminal ileum, consider CT enterogram, check nsaid hx Capsule Endoscopy CPT Code: 82953 - Capsule Endoscopy Assessment & Plan Assessment & Plan (1) Anemia: Comment: iron deficiency anemia Code(s): D64.9 - Anemia, unspecified Category: Medical Plan: see above Medications: New pantoprazole (Protonix) 40 mg PO Q12H 90 tabs 4RF Coding Level of Care Code Procedure Only Diagnoses Anemia D64.9 CPT Codes AMB Capsule Endoscopy - Capsule Endoscopy CPT Code: 81377 - Capsule Endoscopy ([id number])
== END 2023-11-13 08:20 | disposition home or self-care (01) ==
PROVIDERS: PCP Internal Medicine; Visit Provider Internal Medicine Gastroenterology
DX: D64.9 Anemia, unspecified (principal)
CPT/HCPCS: 91110

== ENCOUNTER → 2023-11-13 08:03 | Outpatient (BNVA) | payer OTHER, SELFPAY | PROVIDERS: PCP Internal Medicine; Visit Provider Internal Medicine Gastroenterology | DX: D64.9 Anemia, unspecified (principal); Z12.11 Encounter for screening for malignant neoplasm of colon | CPT/HCPCS: 91110 ==

== ENCOUNTER 2023-12-30 13:00 | Outpatient (RCR) | payer OTHER, SELFPAY ==
[2023-11-05 12:39] VITALS: BP 124/53; PULSE 83; RESP 16; TEMP 36.8; O2SAT 97; BMI 27.9
[2023-11-05] MEDS: 0.9 % Sodium Chloride Flush 10 ML SYRINGE 5 ML IVFLUSH (13:03)
[2023-11-05] MEDS: Iron Sucrose Complex 200 MG in 0.9 % Sodium Chloride 100 ML 440 MG IV (13:04)
[2023-11-11 12:29] VITALS: BP 102/56; PULSE 82; RESP 20; TEMP 36.6; O2SAT 98
[2023-11-11] MEDS: 0.9 % Sodium Chloride Flush 10 ML SYRINGE 5 ML IVFLUSH (12:45)
[2023-11-11] MEDS: Iron Sucrose Complex 200 MG in 0.9 % Sodium Chloride 100 ML 440 MG IV (12:46)
[2023-11-18 12:47] VITALS: BP 119/59; PULSE 98; RESP 16; TEMP 37.1; O2SAT 98
[2023-11-18] MEDS: Iron Sucrose Complex 200 MG in 0.9 % Sodium Chloride 100 ML 440 MG IV (12:56)
[2023-11-25 12:35] VITALS: BP 101/48; PULSE 96; RESP 18; TEMP 37.1; O2SAT 96
[2023-11-25] MEDS: Iron Sucrose Complex 200 MG in 0.9 % Sodium Chloride 100 ML 440 MG IV (12:44)
[2023-11-25] MEDS: 0.9 % Sodium Chloride Flush 10 ML SYRINGE 5 ML IVFLUSH (13:02)
--- NOTE | 2023-11-25 13:08 | HO.INF ---
13:10pm- lab in- blood drawn- kosta matute.
[2023-11-25 13:15] LABS: MANUAL DIFF FLAG NO
[2023-11-25 13:32] LABS: Eosinophils Absolute Auto 0.1 X10*3/uL (0.0-0.4); Eosinophils Percent Auto 2.3 % (0-4); Hematocrit 25.9 % (37.0-47.0); Hemoglobin 8.9 g/dl (12.0-16.0); Imm Gran Abs Auto 0.01 X10*3/uL (0.00-0.03); Imm Gran Pct Auto 0.3 % (0.0-0.4); Lymphocytes Percent Auto 32.7 % (20-40); Mean Corpuscular HGB Conc 34.4 g/dl (31.0-35.0); Mean Corpuscular Hemoglobin 29.6 pg (27.0-33.0); Monocytes Absolute Auto 0.3 X10*3/uL (0.1-1.2); Monocytes Percent Auto 8.7 % (2-11); Neutrophils Absolute Auto 1.7 x10*3/uL (2.0-8.3); Red Blood Count 3.01 X10*6/uL (4.20-5.50); Red Cell Distribution Width 15.9 % (11.0-16.0); White Blood Count 3.1 X10*3/uL (4.8-10.8)
[2023-11-25 14:07] LABS: Ferritin 196 ng/mL (10-250)
[2023-11-25 14:25] LABS: Mean Platelet Volume 9.8 fL (9.4-12.3); Platelet Count 190 X10*3/uL (160-400)
[2023-12-04 12:51] VITALS: BP 122/49; PULSE 81; RESP 16; TEMP 36.4
[2023-12-04] MEDS: Iron Sucrose Complex 200 MG in 0.9 % Sodium Chloride 100 ML 440 MG IV (13:03)
[2023-12-04] MEDS: 0.9 % Sodium Chloride Flush 10 ML SYRINGE 5 ML IVFLUSH (13:24)
[2023-12-16 12:26] VITALS: BP 128/56; PULSE 89; RESP 16; TEMP 36.4; O2SAT 98
[2023-12-16] MEDS: Iron Sucrose Complex 200 MG in 0.9 % Sodium Chloride 100 ML 440 MG IV (12:40)
[2023-12-16 13:06] LABS: Hematocrit 25.6 % (37.0-47.0); Hemoglobin 8.4 g/dl (12.0-16.0); Mean Corpuscular HGB Conc 32.8 g/dl (31.0-35.0); Mean Corpuscular Hemoglobin 29.3 pg (27.0-33.0); Mean Corpuscular Volume 89.2 fL (80.0-98.0); Mean Platelet Volume 9.2 fL (9.4-12.3); Platelet Count 180 X10*3/uL (160-400); Red Blood Count 2.87 X10*6/uL (4.20-5.50); White Blood Count 3.9 X10*3/uL (4.8-10.8)
[2023-12-16 13:40] LABS: Ferritin 182 ng/mL (10-250)
[2023-12-23 13:07] VITALS: BP 103/47; PULSE 89; RESP 18; TEMP 36.9; O2SAT 97
[2023-12-23 13:10] LABS: Basophils Percent Auto 0.8 % (0-2); Eosinophils Absolute Auto 0.1 X10*3/uL (0.0-0.4); Eosinophils Percent Auto 1.3 % (0-4); Hemoglobin 8.4 g/dl (12.0-16.0); Imm Gran Abs Auto 0.01 X10*3/uL (0.00-0.03); Imm Gran Pct Auto 0.3 % (0.0-0.4); Lymphocytes Percent Auto 25.1 % (20-40); MANUAL DIFF FLAG NO; Mean Corpuscular HGB Conc 33.6 g/dl (31.0-35.0); Mean Corpuscular Hemoglobin 30.2 pg (27.0-33.0); Mean Corpuscular Volume 89.9 fL (80.0-98.0); Mean Platelet Volume 9.1 fL (9.4-12.3); Monocytes Absolute Auto 0.3 X10*3/uL (0.1-1.2); Monocytes Percent Auto 6.9 % (2-11); Neutrophils Absolute Auto 2.6 x10*3/uL (2.0-8.3); Neutrophils Percent Auto 65.6 % (45-73); Platelet Count 176 X10*3/uL (160-400); Red Blood Count 2.78 X10*6/uL (4.20-5.50); Red Cell Distribution Width 15.7 % (11.0-16.0); White Blood Count 3.9 X10*3/uL (4.8-10.8)
[2023-12-23] MEDS: Iron Sucrose Complex 200 MG in 0.9 % Sodium Chloride 100 ML 440 MG IV (13:19)
[2023-12-23 13:47] LABS: Ferritin 201 ng/mL (10-250)
[2023-12-30 12:41] VITALS: BP 105/85; PULSE 86; RESP 18; TEMP 36.9; O2SAT 100
[2023-12-30] MEDS: Iron Sucrose Complex 200 MG in 0.9 % Sodium Chloride 100 ML 440 MG IV (13:03)
[2023-12-30] MEDS: 0.9 % Sodium Chloride Flush 10 ML SYRINGE 5 ML IVFLUSH (13:24)
== END 2024-05-13 11:31 | disposition home or self-care (01) ==
LOC: HO.INF 13:00
PROVIDERS: Visit Provider Internal Medicine Medical Oncology
DX: D64.9 Anemia, unspecified (principal)
CPT/HCPCS: 36415; 82728; 85025; 85027; 96365; 96374; J1756

== ENCOUNTER 2024-02-18 07:55 | Outpatient (REF) | payer OTHER, SELFPAY ==
--- NOTE | ~2024-02-18 | CT_ITS ---
EXAMINATION: CT ENTEROGRAPHY ABDOMEN AND PELVIS WITH CONTRAST CLINICAL INFORMATION: Follow-up findings from the there are capsular exam showing erosion in the small bowel COMPARISON: None available. TECHNIQUE: Study performed with oral VoLumen (1350 mL) and 480 mL of water to distend the abdomen. The patient was injected with 8 mL Omnipaque 350 intravenous contrast which was administered without adverse effect. Coronal and sagittal reformatted images were obtained at the technologist's workstation. This CT examination was performed using dose optimization techniques as appropriate, variously including the following: *Automated exposure control *Adjustment of mA and/or kV according to patient size (this includes techniques or standardized protocols for targeted exams where dose is matched to indication/reason for exam; i.e. extremities or head) *Use of iterative reconstruction technique DLP: 8083-3894 mGy-cm FINDINGS: GASTROINTESTINAL FINDINGS: Stomach: Stomach is unremarkable there is questionable filling defect small mass in the first portion of duodenal seen on image 35 series 4 without evidence of obstruction. Small intestine: Satisfactorily distended and normal in appearance. Large intestine: Well-distended and normal in appearance. No perirectal changes demonstrated. The appendix is normal. Additional findings: No abnormal enhancement of the vasa recta or significant mesenteric or retroperitoneal lymphadenopathy is seen. No abdominal abscess or fistulous tract demonstrated. ABDOMINAL AND PELVIC CT FINDINGS: Liver, gallbladder, biliary tract: Unremarkable Pancreas: Unremarkable Spleen: Calcifications seen in the spleen most likely granulomatous in nature. Adrenal glands and kidneys: Right adrenal gland replaced by wall mass measured 1.8 x 1.9 cm of low attenuation most likely adenoma , correlate clinically Kidneys are normal without hydronephrosis masses or nephrolithiasis. Ureters and bladder: Ureters and bladder are of normal attenuation without obstruction or masses. There is no hydroureteronephrosis. Lymphovascular structures: Unremarkable Bones: Mild degenerative changes in lumbar spine with narrowing of L5-S1, and L2-L3 as well as levoscoliosis. Lung bases: Clear CT/CT enterography IMPRESSION: Questionable small mass most likely polyp in the duodenum. Scoliosis and degenerative changes in lumbar spine. Small mass in the right adrenal gland possibly adenoma, correlate with noncontrast CT Electronically signed by: Kyler Fine MD 03/17/2024 04:10 PM EDT
[2024-02-18] MEDS: iohexoL 350 MG/ML 100 ML INFUS..BTL IV (09:51)
== END 2024-02-18 07:56 | disposition home or self-care (01) ==
LOC: HO.CT 07:55
PROVIDERS: PCP Internal Medicine; Visit Provider Internal Medicine Medical Oncology
DX: D64.9 Anemia, unspecified (principal)
CPT/HCPCS: 74177; Q9967

== ENCOUNTER 2024-04-14 12:20 | Day surgery (SDC) | payer OTHER, SELFPAY ==
--- NOTE | 2024-04-13 10:04 | HO.ANESPROP2 ---
Documented by User: Nica Swanson NP 04/13/24 10:06 HPI - Anesthesia Eval Consult details Narrative: 74yo F for Upper Endoscopy Follows C Heme. Last visit 04/11/24 with rec for endoscopy PMFSH Active Problems Active Problems: All Active Problems Normochromic normocytic anemia (Acute) Anemia (Acute) Chronic rhinitis (Acute) Chronic cough (Acute) Past Medical History Medical History Hx of hyperlipidemia HTN (hypertension) Diabetes Anemia GERD (gastroesophageal reflux disease) Anemia Chronic rhinitis Chronic cough Family History Family history of problems with anesthesia: No Surgical History Surgical History Hx of colonoscopy (~09/28/23) Hx of esophagogastroduodenoscopy History of colonoscopy (~08/2023) History of colonoscopy (~2018) History of Problems with Anesthesia: No Social History Social History Household Members: Family Patient Tobacco Use Status: Never used Tobacco Use of substances other than those prescribed or required for medical reasons: No Are you DNR?: No Advance Directives: No Advance Directives Information Provided: Yes Recently lost weight without trying: No service: No Current occupational status: employed and retired Meds Allergies Allergy/AdvReac Type Severity Reaction Status Date / Time amlodipine AdvReac Unknown leg cramps Verified 04/14/24 13:06 losartan AdvReac Unknown cough Verified 04/14/24 13:06 nebivolol [Bystolic] AdvReac Unknown leg edema, Verified 04/14/24 13:06 coughing MAKSIM inhibitors AdvReac Unknown cough Uncoded 04/11/24 14:32 Home Medications ?Medication ?Instructions ?Recorded ?Confirmed ?Last Taken ?Type glipizide 2.5 mg tablet, extended 2.5 mg PO DAILY 10/16/22 04/14/24 Unknown History release 24 hr hydrochlorothiazide 12.5 mg tablet 12.5 mg PO DAILY 10/16/22 04/14/24 Unknown History metformin 500 mg tablet,extended 500 mg PO BID 10/16/22 04/14/24 Unknown History release 24 hr olmesartan 20 mg tablet 20 mg PO DAILY 10/16/22 04/14/24 Unknown History rosuvastatin 20 mg tablet 20 mg PO BEDTIME 10/16/22 04/14/24 Unknown History Exam Pertinent Lab Results Pertinent Lab Results: Laboratory Tests 04/11/24 14:32 WBC 5.4 Hgb 8.7 L Hct 26.1 L Plt Count 204 Sodium 140 Potassium 5.0 Chloride 109 H Carbon Dioxide 20 L BUN 42 H Creatinine 1.90 H Assessment and Plan Assessment Anesthesia Assessment: Chart Reviewed Final Anesthetic Review Family History of Problems with Anesthesia: No History of Problems with Anesthesia: No Documented by User: Zana Auguste MD 04/14/24 13:25 PMFSH Past Medical History Medical History Hx of hyperlipidemia HTN (hypertension) Diabetes Anemia GERD (gastroesophageal reflux disease) Anemia Chronic rhinitis Chronic cough Surgical History Surgical History Hx of colonoscopy (~09/28/23) Hx of esophagogastroduodenoscopy History of colonoscopy (~08/2023) History of colonoscopy (~2018) Social History Social History Household Members: Family Patient Tobacco Use Status: Never used Tobacco Use of substances other than those prescribed or required for medical reasons: No Are you DNR?: No Advance Directives: No Advance Directives Information Provided: Yes Recently lost weight without trying: No service: No Current occupational status: employed and retired Meds Allergies Allergy/AdvReac Type Severity Reaction Status Date / Time amlodipine AdvReac Unknown leg cramps Verified 04/14/24 13:06 losartan AdvReac Unknown cough Verified 04/14/24 13:06 nebivolol [Bystolic] AdvReac Unknown leg edema, Verified 04/14/24 13:06 coughing MAKSIM inhibitors AdvReac Unknown cough Uncoded 04/11/24 14:32 Home Medications ?Medication ?Instructions ?Recorded ?Confirmed ?Last Taken ?Type glipizide 2.5 mg tablet, extended 2.5 mg PO DAILY 10/16/22 04/14/24 Unknown History release 24 hr hydrochlorothiazide 12.5 mg tablet 12.5 mg PO DAILY 10/16/22 04/14/24 Unknown History metformin 500 mg tablet,extended 500 mg PO BID 10/16/22 04/14/24 Unknown History release 24 hr olmesartan 20 mg tablet 20 mg PO DAILY 10/16/22 04/14/24 Unknown History rosuvastatin 20 mg tablet 20 mg PO BEDTIME 10/16/22 04/14/24 Unknown History Exam Airway Mallampati Class: II TM Dist: >3cm Neck ROM: Full Loose/Missing/Broken Teeth: No Heart: ok Lungs: ok Assessment and Plan Final Anesthetic Review NPO: Yes ASA Class: III Final Preanesthetic Review: No Changes in Pt Med Stat, Meds/Allgs Chart Reviewed, Consent Obtained/Reviewed and Anes Risks/Benef Reviewed Patient Risk: Intermediate Procedure Risk: Intermediate Anesthetic Plan Anesthetic Plan: Agree w/ Assess. and Plan and TIVA Disposition: Standard PACU
[2024-04-14 13:07] VITALS: BMI 27.9
--- NOTE | 2024-04-14 13:09 | MHC.SHP ---
Pre-Procedural Eval Section A - 24 Hr Update-Section A only Date of Service: 04/14/24 Section B - Complete if H&P > 30 days Chief Complaint: Iron deficiency anemia, unspecified Relevant Family History (Specify if Yes): No Relevant Social History: None Present Medications: see Short Stay Collaborative assessment Medical History: Significant History (Hx of hyperlipidemia HTN (hypertension) Diabetes Anemia GERD (gastroesophageal reflux disease) Anemia Chronic rhinitis Chronic cough) History of Previous Operations: Relevant previous surgery/procedure and date(s) (Hx of colonoscopy (~09/28/23) Hx of esophagogastroduodenoscopy History of colonoscopy (~08/2023) History of colonoscopy (~2018)) Allergies: Allergies Allergy/AdvReac Type Severity Reaction Status Date / Time amlodipine AdvReac Unknown leg cramps Verified 04/14/24 13:06 losartan AdvReac Unknown cough Verified 04/14/24 13:06 nebivolol [Bystolic] AdvReac Unknown leg edema, Verified 04/14/24 13:06 coughing MAKSIM inhibitors AdvReac Unknown cough Uncoded 04/11/24 14:32 Review of Systems Sugical H&P ROS: Negative: Constitution, Cardiovascular, Respiratory, Neurological, Psychiatric, Hem-Onc, Allergic/Immunologic, Gastrointestinal, Genitourinary, Musculoskeletal, Integumentary, Endocrine and Eyes/Ears/Nose/Throat Exam Surgical H&P Exam: Normal: HEENT, Normal: Heart, Normal: Lungs, Normal: Extremities, Normal: Abdomen, Normal: Skin and Normal: Neurological Plan Diagnosis/Plan: Unchanged I have reviewed the history and physical and performed a pertinent physical examination on my patient. No changes have occurred unless specified. Time Spent With Patient Time: Total time managing care of this patient today ____ minutes.
[2024-04-14 13:27] VITALS: BP 135/59; PULSE 92; RESP 15; TEMP 36.7; O2SAT 99
[2024-04-14] MEDS: Lactated Ringers 1,000 ML 100 ML IVCONT (13:30)
[2024-04-14 13:33] LABS: Glucose, Whole Blood 74 mg/dL (60-115)
--- NOTE | 2024-04-14 13:49 | W.PM.OPN ---
Operative Note Operative Note Date of Service: 04/14/24 Narrative: Procedure Description: EGD Indication: polyp on imaging, anemia Anesthesia: MAC FLEXIBLE TRANSORAL UPPER GASTROINTESTINAL ENDOSCOPY UPPER ENDOSCOPY Consent: Indications for the procedure and potential complications of bleeding, perforation, reaction to medications and missed diagnosis were discussed with the patient and informed consent was obtained. Instrument: Olympus GIF H 190 J mid size upper endoscope Monitoring: Vital signs and clinical assessment, continuous EKG monitoring, Pulse oximetry, Carbon Dioxide monitoring and blood pressure monitoring were done throughout the procedure. Procedure: The patient was placed in the left lateral decubitis position and pre-procedure medications were administered and a bite block was placed. The endoscope was inserted into the mouth and advanced under direct vision to the third part of duodenum. A careful inspection was made as the upper endoscope was withdrawn including a retroflexed examination of the proximal stomach; Findings and interventions are described below. Findings: Larynx:normal Esophagus: GE junction at 38 cm, diaphragm hiatus at 40 cm, 2 cm sliding hiatal hernia noted with schatzki ring, also a patch of salmon pink tissue noted, bx taken, mild esophagitis noted Stomach: mild erythema, x2 small polyps 4-5 mm removed with cold forceps . Biopsies were obtained also from random tissue . Grade 2 flap valve on retroflexed examination of the cardia. Duodenum: 8 mm sessile polyp removed with cold snare and random small bowel bx also taken Intervention: Biopsies as noted above, Impression/Findings: gastritis, small polyps duodenal polyp mild esophagitis schatzki ring hiatal hernia PLAN: await bx results GERD precautions
[2024-04-14 14:04] VITALS: BP 100/58; PULSE 99; RESP 18; TEMP 36.2; O2SAT 98
[2024-04-14 14:19] VITALS: BP 108/55; PULSE 99; RESP 18; TEMP 36.2; O2SAT 98
== END 2024-04-14 14:49 | disposition home or self-care (01) ==
PROVIDERS: PCP Internal Medicine; Visit Provider Internal Medicine Gastroenterology
PROC: 0DJ08ZZ Inspection of Upper Intestinal Tract, Via Natural or Artificial Opening Endoscopic (ICD-10-PCS; CPT 43235; principal; 2024-04-14 14:00)
DX: K31.7 Polyp of stomach and duodenum (principal); K22.70 Barrett's esophagus without dysplasia; K20.90 Esophagitis, unspecified without bleeding; K29.70 Gastritis, unspecified, without bleeding; K22.2 Esophageal obstruction; K44.9 Diaphragmatic hernia without obstruction or gangrene; K21.9 Gastro-esophageal reflux disease without esophagitis; D50.9 Iron deficiency anemia, unspecified; E11.9 Type 2 diabetes mellitus without complications; I10 Essential (primary) hypertension; E78.5 Hyperlipidemia, unspecified
CPT/HCPCS: 43251; 43239; 82947; 88305; 88313; 88341; 88342; 88360; J2003; J2704

== ENCOUNTER → 2024-04-14 12:20 | Outpatient (BNV) | payer OTHER, SELFPAY | PROVIDERS: PCP Internal Medicine; Visit Provider Internal Medicine Gastroenterology | DX: K31.7 Polyp of stomach and duodenum (principal); D50.9 Iron deficiency anemia, unspecified; K22.2 Esophageal obstruction; K20.90 Esophagitis, unspecified without bleeding | CPT/HCPCS: 43239 ==

== ENCOUNTER → 2024-07-15 12:30 | Outpatient (RCR) | payer OTHER, SELFPAY ==
[2024-05-20 12:45] VITALS: BP 105/51; PULSE 80; RESP 16; TEMP 37; O2SAT 99
[2024-05-20] MEDS: Iron Sucrose Complex 200 MG/10 ML VIAL IVPUSH (12:52)
[2024-05-25 12:32] VITALS: BP 115/54; PULSE 87; RESP 20; TEMP 36.1; O2SAT 99
[2024-05-25] MEDS: Iron Sucrose Complex 200 MG/10 ML VIAL IVPUSH (12:37)
[2024-05-30 12:28] VITALS: BP 98/50; PULSE 87; RESP 16; TEMP 37; O2SAT 100
[2024-05-30] MEDS: Iron Sucrose Complex 200 MG/10 ML VIAL IVPUSH (12:37)
[2024-06-16 12:29] VITALS: BP 166/44; PULSE 85; RESP 18; TEMP 36.6
[2024-06-16] MEDS: Iron Sucrose Complex 200 MG/10 ML VIAL IVPUSH (12:46)
[2024-06-16 12:51] LABS: Hematocrit 26.7 % (37.0-47.0); Hemoglobin 9.1 g/dl (12.0-16.0); Mean Corpuscular HGB Conc 34.1 g/dl (31.0-35.0); Mean Corpuscular Hemoglobin 31.3 pg (27.0-33.0); Mean Corpuscular Volume 91.8 fL (80.0-98.0); Mean Platelet Volume 9.3 fL (9.4-12.3); Platelet Count 200 X10*3/uL (160-400); Red Blood Count 2.91 X10*6/uL (4.20-5.50); Red Cell Distribution Width 13.9 % (11.0-16.0)
[2024-06-16 13:23] LABS: Ferritin 106 ng/mL (10-250)
[2024-06-22 12:23] VITALS: BP 122/56; PULSE 75; RESP 14; TEMP 36.6; O2SAT 100
[2024-06-22] MEDS: Iron Sucrose Complex 200 MG/10 ML VIAL IVPUSH (12:46)
[2024-06-29 12:04] VITALS: BP 134/94; PULSE 77; RESP 14; TEMP 36.1; O2SAT 100
[2024-06-29] MEDS: Iron Sucrose Complex 200 MG/10 ML VIAL IVPUSH (12:15)
[2024-07-07 12:50] VITALS: BP 124/87; PULSE 73; RESP 18; TEMP 36.6
[2024-07-07] MEDS: Iron Sucrose Complex 200 MG/10 ML VIAL IVPUSH (12:59)
[2024-07-15] MEDS: Iron Sucrose Complex 200 MG/10 ML VIAL IVPUSH (12:43)
[2024-07-15 12:47] LABS: Hematocrit 26.5 % (37.0-47.0); Hemoglobin 8.9 g/dl (12.0-16.0); Mean Corpuscular HGB Conc 33.6 g/dl (31.0-35.0); Mean Corpuscular Hemoglobin 31.2 pg (27.0-33.0); Mean Platelet Volume 8.9 fL (9.4-12.3); Platelet Count 168 X10*3/uL (160-400); Red Blood Count 2.85 X10*6/uL (4.20-5.50); Red Cell Distribution Width 13.3 % (11.0-16.0); White Blood Count 3.3 X10*3/uL (4.8-10.8)
[2024-07-15 13:27] LABS: Ferritin 302 ng/mL (10-250)
== END | disposition home or self-care (01) ==
LOC: HO.INF 05-20 12:28
PROVIDERS: Visit Provider Internal Medicine Medical Oncology
DX: D64.9 Anemia, unspecified (principal)
CPT/HCPCS: 36415; 82728; 85027; 96374; J1756

== ENCOUNTER 2024-07-19 14:56 | Outpatient (AMB) | payer OTHER, SELFPAY ==
--- NOTE | 2024-07-19 15:05 | MHC.OFFVIS ---
Vital Signs 07/19/24 15:07 Height 5 ft 6 in Weight 176 lb 5.917 oz BMI 28.5 BP 118/52 L Blood Pressure Location Rt brachial Pulse 79 Pulse Source Pulse Oximeter Pulse Oximetry (%) 100 Oxygen Delivery Method Room Air Intake Visit Reasons: Cough Allergies amlodipine Adverse Reaction (Unknown, Verified 07/19/24 15:09) leg cramps losartan Adverse Reaction (Unknown, Verified 07/19/24 15:09) cough nebivolol [Bystolic] Adverse Reaction (Unknown, Verified 07/19/24 15:09) leg edema, coughing MAKSIM inhibitors Adverse Reaction (Unknown, Uncoded 07/19/24 15:09) cough HPI Comments Details: The patient is a 74-year-old woman with a known history high blood pressure. She also had long history of chronic cough. Patient states that she initially started with a cough once she has developed hypertension. Patient started taking hypertensive medications and that was ultimately brought worsening her cough. Subsequently after that she noticed that when she develops a cold or bronchitis that will going to her lungs then ultimately require medications to help with the symptoms. Typically when that happened she will go to an urgent care and she will be evaluated there. Subsequently after that the patient developed COVID-19 and she noticed her cough worsen. The patient has been no better. The patient has taking allergy medications with no significant improvement. She has also use the Tessalon Perles with no significant improvement. The patient does use cough drops however that gives some relief she does complaint of postnasal drip and nasal congestion. Usually worse when she lays flat she denies any significant reflux disease. As far as animals in the house she used to have up dog but many years ago. Denies any significant exposure to any fumes or toxins. She does live in an old house and may likely have mold. 12/16/2022 the patient is here for a pulmonary follow-up visit. The patient overall is doing a little better. After starting the fluticasone nasal spray in the nasal rinsing she was doing a lot better. The cough subsided completely. For about 2 weeks. Then after getting the pulmonary function studies she started coughing up again. Although has not been as significant. She does have a rescue inhaler that she uses as needed. She seemed partial resolution with the inhaler. Her PFTs were reassuring without any evidence of any obstructive nor restrictive ventilatory defects. She does have a mild diffusion impairment does isolated. Her blood work also demonstrated an IgE level of 71 which is high normal. Her allergy testing was negative for all the a common environmental allergens that were checked in the blood. All this is reassuring. The patient definitely has a cough that is related to an upper airway cough syndrome. She is going to start using a 1st generation antihistamine therapy and also could consider cough suppressants to maintain the cough under control. She has not gotten her x-ray. Will go ahead and follow up with the x-ray. If the x-ray is abnormal I will let her know that she will need additional imaging studies. Otherwise will follow-up in the springtime. 08/18/2023 the patient is here for a pulmonary follow-up visit. The patient since we spoke did have an admission to [facility]. She started developing worsening shortness of breath even with minimal activity. Also had increased heart rate. Initially she just thought she just had a respiratory virus. But then took her to [facility]. She was found to have a hemoglobin of 5. She was given 3 units of blood. She did have a GI evaluation. Had a limited colonoscopy. Her EGD demonstrated significant erosive esophagitis. She was placed on a PPI twice a day and her cough is significantly improved. She is trying to continue with the reflux diet and continues to sleep elevated. Right now she understands that her cough is related to his reflux disease. Now that she is on the medication she is doing overall better. Her last chest x-ray was clear. Although she continues to be symptomatic or recurrence we can also consider getting a CT scan of the chest. She will be following up with GI and also with surgery. Still the cause of the anemia is not clear. We did again review her PFTs which demonstrated slight mild diffusion impairment. This is likely the beginning her anemia. Otherwise PFTs were normal. The patient will follow up as needed basis. 07/19/2024 the patient is here for a pulmonary follow-up visit. Overall she is doing well from a respiratory status. Her cough is significantly better. She continues to follow-up reflux diet and also take her PPI. Therefore, now after some time of taking her PPI her cough is dramatically improved. No significant chest congestion. She still has some dyspnea on exertion although she is anemic. He is following closely with GI and also Hematology regarding her persistent anemia. her last imaging study was reassuring. Since the patient does not have any further respiratory complaints will hold off on imaging studies but will plan to repeat her x-ray next year. If she has any worsening symptoms prior to her next visit she will call for an earlier assessment. [facility] Medical History (Updated 07/19/24 @ 22:21 by Peter Main MD) Hx of hyperlipidemia HTN (hypertension) Diabetes Anemia GERD (gastroesophageal reflux disease) Anemia Chronic rhinitis Chronic cough Surgical History Hx of hysterectomy Hx of tubal ligation Hx of colonoscopy (~09/28/23) Hx of esophagogastroduodenoscopy History of colonoscopy (~08/2023) History of colonoscopy (~2018) Social History Household Members: Family Patient Tobacco Use Status: Never used Tobacco service: No Current occupational status: employed and retired Review of Systems Const Denies chills and Denies fever(s) Card Denies chest pain, Denies dyspnea and Reports dyspnea on exertion Resp Denies cough, Denies dyspnea and Reports dyspnea on exertion GI Denies hematochezia and Denies change in bowel habits Denies hematuria Musc Denies back pain and Denies limited range of motion Neuro Denies focal weakness and Denies convulsions Psych Denies depression and Denies mood swings Physical Exam Vital Signs: Last Vital Signs Pulse 79 07/19/24 15:07 BP 118/52 L 07/19/24 15:07 Pulse Ox 100 07/19/24 15:07 Oxygen Delivery Method Room Air 07/19/24 15:07 BMI result Body Mass Index 28.5 Const General: comfortable Orientation/consciousness: patient oriented x3 HEENT Head: Yes atraumatic Eyes General: appearance normal, both eyes and all related structures Neck Neck: Yes supple Chest Chest palpation & inspection: normal inspection of the chest Resp Effort & Inspection: normal respiratory effort Auscultation: clear to auscultation bilaterally, no rales, no rhonchi and no wheezes Cardio Rate: regular rate Rhythm: regular rhythm Heart sounds: S1 normal heart sound present and S2 normal heart sound present GI Palpation (GI): Soft to palpation Skin General skin exam: no rashes or lesions noted Neuro General: patient oriented x3 Extrem General: Yes no clubbing, cyanosis or edema Assessment & Plan Assessment & Plan (1) Chronic rhinitis: Code(s): J31.0 - Chronic rhinitis Category: Medical (2) Chronic cough: Comment: Likely GERD related cough. Possibly pharyngeal/Laryngeal penetration which could also result in reactive airway disease Code(s): R05.3 - Chronic cough Category: Medical (3) Anemia: Code(s): D64.9 - Anemia, unspecified Category: Medical Qualifiers: Anemia type: unspecified type Qualified Code(s): D64.9 - Anemia, unspecified Plan continue AARON as needed nasal rinsing HOB elevated continue PPI reflux diet start taking B complex and F/U with Hematology F/U 1 yr or PRN Coding Level of Care Code Est Pt Level 4 (00769) Diagnoses Chronic rhinitis J31.0 Chronic cough R05.3 Anemia, unspecified type D64.9 Anemia type: unspecified type Time Spent (min) 16
[2024-07-19 15:07] VITALS: BP 118/52; PULSE 79; O2SAT 100; BMI 28.5
== END 2024-07-19 15:30 | disposition home or self-care (01) ==
PROVIDERS: PCP Internal Medicine; Visit Provider Hospitalist
DX: J31.0 Chronic rhinitis (principal); R05.3 Chronic cough; D64.9 Anemia, unspecified
CPT/HCPCS: 99214

== ENCOUNTER → 2024-07-19 14:56 | Outpatient (BNVA) | payer OTHER, SELFPAY | PROVIDERS: PCP Internal Medicine; Visit Provider Hospitalist ==

== ENCOUNTER 2024-10-18 14:20 | Outpatient (REF) | payer OTHER, SELFPAY ==
--- OUTSIDE RECORDS SUMMARY | 2024-10-18 15:31 | XMS_ITS | Clinical Summary ---
Author Organization [facility] ity Address [address] [place] [address] Care Team Providers Care Vp Director Of Finance Name Role Phone Unavailable Primary Care Provider Unavailabl e Social History Tobacco Use Types Packs/Day Years Used Date Smoking Tobacco: Never Assessed Comments Unknown Sex and Gender Information Value Date Recorded Sex Assigned at Not on file Legal Sex Female 12:16 AM EST Gender Identity Not on file Sexual Orientation Not on file Obstetrics History Plan of Treatment Health Maintenance Due Date Last Done Comments DTaP,Tdap,and Td Vaccines (1 - Tdap) 1967 Pneumococcal Vaccine: 50+ Ye ars (1 of 1 - PCV) 1998 Zoster Vaccines (1 of 2) 1998 Depression Screening 05/11/2022 Falls Risk Assessment 05/11/2022 Hepatitis C Screening 05/11/2022 Osteoporosis Screening (Bone Density Screening) 05/11/2022 Social Influencers of Health Screening 05/11/2022 RSV Immunization Adult Patie nts (1 - 1-dose 75+ series) 2023 COVID-19 Vaccine ( - 2023-2 5 season) 2024 Influenza Vaccine (Season Ended) 2025 HIB Vaccines Aged Out No longer eligi ble based on patient's age to complete this topic HPV Vaccines Aged Out No longer eligi ble based on patient's age to complete this topic Hepatitis A Vaccines Aged Out No long er eligible based on patient's age to complete this topic Hepatitis B Vaccines Aged Out No long er eligible based on patient's age to complete this topic IPV Vaccines Aged Out No longer eligi ble based on patient's age to complete this topic MMR Vaccines Aged Out No longer eligi ble based on patient's age to complete this topic Meningococcal ACWY Vaccine Aged Out N o longer eligible based on patient's age to complete this topic Meningococcal B Vaccine Aged Out No l onger eligible based on patient's age to complete this topic RSV Immunization Patients Un darby 20 months Aged Out No longer eligible b ased on patient's age to complete this topic Varicella Vaccines Aged Out No longer eligible based on patient's age to complete this topic
--- OUTSIDE RECORDS SUMMARY | 2024-10-18 15:31 | XMS_ITS | Data Portability ---
Author Organization GAY Knight s, [id number] Address [address] [place] [address] Assessment No assessment recorded. Plan of Treatment Reminders Order Date Submit Date Provider Last Modified By Organization Details Last Modified Time Details Appointments None recorded. Lab None recorded. Referral None recorded. Procedures None recorded. Surgeries None recorded. Imaging XR, chest, 2 view 2022 023 [email or web address] [facility], [address], [place], [address], 4 15:55:54 Medication Orders benzonatate 200 mg capsule 2022 023 [id number], [address] [place], [address], 3 10:38:21 albuterol sulfate HFA 90 mcg/actuati on aerosol inhaler 2022 023 [id number], [address] [place], [address], 3 10:38:20 Augmentin 875 mg-125 mg tablet 2022 023 [id number], [address] [place], [address], 3 10:38:21 Zithromax Z-Brett 250 mg tablet 2022 023 [id number], [address] [place], [address], 3 10:38:21 amoxicillin 875 mg tablet 02/15/ 2023 02/15/2 023 [facility][id number], [address] [place], [address], 10:24:09 Patient TargetsNo targets recorded. Patient Instructions Encounter Date Encounter Id Patient Instructions Last Modified By Organization Details Last Modified Time 07/23/2022 [id number] cough: care instructions [email or web address] Not available 07/23/2022 13:13:55 chronic cough: c are instructions [email or web address] Not available 07/23/2022 13:13:56 tooth and gum pa in: care instructions Not available 07/23/2022 13:13:56 subconjunctival hemorrhage: care instructions [email or web address] Not available 07/23/2022 13:19:06 subconjunctival hemorrhage information [email or web address] Not available 07/23/2022 13:19:06 Your gum pain an d facial swelling likely is due to a dental infection. Take the antibiotic as prescribed. Follow-up with your dentist as soon as possible. The etiology of your chronic cough is unclear. Your lungs are clear and no wheezing was heard on exam. You are not giving a history consistent with post nasal drip or allergies being the cause of the cough. Your current medications do not appear to be the cause of your cough as well. You do not have obvious symptoms of acid reflux but you can try taking some pepcid at bedtime and elevating the head of your bed to see if this helps your symptoms. You have a subconjunctival hemorrhage as well and no specific treatment is needed for this condition. It will resolve over time. Try not to rub your eye. Follow-up with your doctor as soon as possible. Seek Emergency Medical evaluation for any worsening symptoms. [email or web address] Not available 07/23/2022 13:18:49 06/04/2023 [id number] cough: care instructions Not available 06/04/2023 10:38:17 acute bronchitis education [email or web address] Not available 06/04/2023 10:38:17 bronchitis: care instructions [email or web address] Not available 06/04/2023 10:38:17 Acute bronchitis is a common clinical condition characterized by an acute onset but persistent cough, with or without sputum production. It is typically self-limited, resolving within one to three weeks. Symptoms result from inflammation of the lower respiratory tract and are most frequently due to viral infection. Treatment is focused on patient education and supportive care. Antibiotics are not needed for the great majority of patients with acute bronchitis but are greatly overused for this condition. Reducing antibiotic use for acute bronchitis is a national and international health care priority. In most patients, the cough persists for 1 to 3 weeks, with a average duration of 18 days. The cough may be associated with either purulent or nonpurulent sputum production The presence of purulent sputum is a nonspecific finding and does not appear to be predictive of bacterial infection or that antibiotics are needed. For the great majority of patients, use of antibiotics does not hasten recovery or prevent complications but puts patients at increased risk of adverse effects including potentially severe complications such as Clostridioides difficile infection and anaphylaxis. Non-Pharmacological treatment for coughin. Throat lozenges 2. Hot tea 3. Honey 4. Smoking cessation 5. Avoidance of secondhand smoke. Pharmacological Treatment: 1. Robatussin or Guafenasin 2. Antihistamines 3. Dextromethoraphen I would plan on being seen again if any of the following symptoms develop: 1. Fever (100.5) 2. Shortness of breath 3. Wheezing 4. Worsening Cough. I would go to the ER if you develop: 1. Severe Shortness of breath 2. Chest Pain 3. Wheezing 4. Coughing up Blood [email or web address] Not available 06/04/2023 10:38:26 Reason for Referral None Reported. Problems Name Problem SNOMED Code Status Onset Date Resolution Date Notes Provider Name and Address Organization Details Recorded Time Diabetes mellitus 66589246 Active 2022 BRYAN weiss [place] - [facility] 3 10:54:43 Hypertensive disorder 40962426 Active 2022 GAY Levin [facility] 3 10:54:49 Problem Notes None recorded. Procedures Surgical History Date Name Laterality Status Provider Name and Address Organization Details Recorded Time Hysterectomy/ bladder repair completed BRYAN BOWLING PA - [facility] 07/23/2022 10:55:36 Imaging Results None recorded. Procedure Notes None recorded. Medical Equipment None Reported. Allergies Allergen ID Allergen Name Allergen Category Reaction Reaction Severity Criticality Documentation Date Start Date Code Code System Note Provider Name and Address Organization Details Recorded Time [id number] Bactrim medicatio n rash Not available Not available 07/23/2022 56878 9 RxNorm GAY Levin - [facility] 3 10:53:36 Medications Name Sig Start Date Stop Date Status Note LastModified by Organization Details LastModified Time Augmentin 875 mg-125 mg tablet Take 1 tablet every 12 hours by oral route for 7 days. 2022 active Not Available Not Available Not Avai lable prednisone 10 mg tablet PLEASE SEE ATTACHED FOR DETAILED DIRECTION S 07/23 completed Not Available Not Available Not Available benzonatate 200 mg capsule Take 1 capsule 3 times a day by oral route. 2022 active Not Available Not Available Not Avai lable Zithromax Z-Brett 250 mg tablet Take 2 tablets 1 time a day for 1 day then one tablet daily for 4 days 2022 active Not Available Not Available Not Avai lable aspirin 81 mg tablet,lela yed release TAKE 1 TABLET BY MOUTH EVERY DAY active Not Available Not Available No t Available terbinafine HCl 250 mg tablet TAKE 1 TABLET BY MOUTH TWICE A DAY 06/04 completed Not Available Not Available Not Available amoxicillin 875 mg tablet Take 1 tablet every 12 hours by oral route for 10 days. 06/04 completed Not Available Not Available Not Available glipizide ER 2.5 mg tablet, extended release 24 hr TAKE 1 TABLET BY MOUTH EVERY DAY active Not Available Not Available No t Available hydrochloro thiazide 12.5 mg capsule TAKE 1 CAPSULE BY MOUTH DAILY active Not Available Not Available No t Available codeine 10 mg-guaifene sin 100 mg/5 mL oral liquid TAKE 5 ML BY MOUTH EVERY 6 (SIX) HOURS IF NEEDED FOR COUGH FOR UP TO 5 DAYS. 07/23 completed Not Available Not Available Not Available albuterol sulfate HFA 90 mcg/actuati on aerosol inhaler Inhale 2 puffs every 4 hours by inhalatio n route. 2022 active Not Available Not Available Not Avai lable ferrous sulfate 325 mg (65 mg iron) tablet,lela yed release TAKE 1 TABLET BY MOUTH EVERY DAY active Not Available Not Available No t Available losartan 50 mg-hydrochl orothiazide 12.5 mg tablet TAKE 1 TABLET BY MOUTH EVERY DAY 07/23 completed Not Available Not Available Not Available fluticasone propionate 50 mcg/actuati on nasal spray,suspe nsion SPRAY 2 SPRAYS INTRANASA LLY DAILY active Not Available Not Available No t Available metformin ER 500 mg tablet,exte nded release 24 hr TAKE 1 TABLET BY MOUTH TWICE A DAY active Not Available Not Available No t Available olmesartan 20 mg tablet TAKE 1 TABLET BY MOUTH EVERY DAY active Not Available Not Available No t Available rosuvastati n 10 mg tablet TAKE 1 TABLET BY MOUTH EVERY DAY 07/23 completed Not Available Not Available Not Available rosuvastati n 20 mg tablet TAKE 1 TABLET BY MOUTH EVERY DAY active Not Available Not Available No t Available fenofibrate 160 mg tablet TAKE 1 TABLET BY MOUTH EVERY DAY 07/23 completed Not Available Not Available Not Available hydrochloro thiazide 12.5 mg tablet TAKE 1 TABLET BY MOUTH EVERY DAY active Not Available Not Available No t Available Vitals Date Recorded Body height Body mass index (BMI) Body weight Oxygen saturation Oxygen saturation in Arterial blood by Pulse oximetry Pain severity - 0-10 verbal numeric rating [Score] - Reported Heart rate Respiratory rate Body temperature Systolic blood pressure Diastolic blood pressure Provider Name and Address Organization Details Last Updated DateTime 3 167.64 cm 29.1 kg/m2 99249.6 3 g 99 % 99 % 4 78 /min 18 /min 98.2 [degF] 145 mm[Hg] 66 mm[Hg] Mesha Thorpe [place] [facility] 3 10:25:00 Date Recorded Body height Body mass index (BMI) Body weight Pain severity - 0-10 verbal numeric rating [Score] - Reported Respiratory rate Body temperature Heart rate Oxygen saturation Oxygen saturation in Arterial blood by Pulse oximetry Systolic blood pressure Diastolic blood pressure Provider Name and Address Organization Details Last Updated DateTime 3 167.64 cm 29.1 kg/m2 66951.6 3 g 0 20 /min 97.3 [degF] 78 /min 97 % 97 % 139 mm[Hg] 73 mm[Hg] BRYAN BOWLING [place] [facility] 3 10:57:43 Social History Question Answer Notes LastModified by Organizat ion Details LastModified Time Tobacco Smoking Status Never Smoker BRYAN DESMITH null, PA - [facility] 07/23/2022 10:55:29 Have You Had A Flu Shot This Season? Yes Information not available 06/04/2023 Have You Recently Traveled Abroad? No Information not available 07/23/2022 Are You Currently In School? No Information not available 06/04/2023 Sex: Unknown Functional Status Question Answer Note LastModified by Organizat ion Details LastModified Time Do you use any illicit or recreational drugs? No Information not available 07/23/2022 Do you or have you ever used any other forms of tobacco or nicotine? No Information not available 07/23/2022 What is your level of alcohol consumption? None Information not available 07/23/2022 Are you currently employed? No Information not available 06/04/2023 Mental Status None recorded. Family History Relationship Description Onset Age of this Age Resolved Age Notes LastModified by Organization Details LastModified Time Mother Kidney disease Not available 2022 10:55:16 Father Heart disease Not available 2022 10:55:22 Medical History No medical history recorded. Gynecological HistoryNo gynecological history recorded. Obstetrics History GPAL:G 0 P 0 0 0 0 Immunizations Vaccine Type Date Status Note Provider Nam e and Address Organization Details Recorded Time Influenza, adjuvanted, trivalent, PF 7 completed BRYAN DESMITH null, PA - [facility] 07/23/2022 10:53:25 Influenza, adjuvanted, trivalent, PF 8 completed BRYAN DESMITH null, PA - [facility] 07/23/2022 10:53:25 Influenza, high-dose, quadrivalent, PF 1 completed BRYAN DESMITH null, PA - [facility] 07/23/2022 10:53:25 Influenza, adjuvanted, quadrivalent, PF 2 completed BRYAN DESMITH null, PA - [facility] 07/23/2022 10:53:25 COVID-19, mRNA, LNP-S, PF, 100 mcg/0.5mL dose or 50 mcg/0.25mL dose 1 completed BRYAN DESMITH null, PA - [facility] 07/23/2022 10:53:25 COVID-19, mRNA, LNP-S, PF, 100 mcg/0.5mL dose or 50 mcg/0.25mL dose 1 completed BRYAN DESMITH null, PA - [facility] 07/23/2022 10:53:25 COVID-19, mRNA, LNP-S, PF, 30 mcg/0.3 mL dose 1 completed BRYAN DESMITH null, PA - [facility] 07/23/2022 10:53:25 COVID-19, mRNA, LNP-S, PF, 30 mcg/0.3 mL dose 1 completed BRYAN DESMITH null, PA - [facility] 07/23/2022 10:53:25 COVID-19, mRNA, LNP-S, PF, 30 mcg/0.3 mL dose 1 completed BRYAN DESMITH null, PA - [facility] 07/23/2022 10:53:25 COVID-19, mRNA, LNP-S, bivalent, PF, 30 mcg/0.3 mL dose 2 completed BRYAN DESMITH null, PA - [facility] 07/23/2022 10:53:25 pneumococcal polysaccharide PPV23 1 completed BRYAN DESMITH null, PA - [facility] 07/23/2022 10:53:25 pneumococcal polysaccharide PPV23 1 completed BRYAN DESMITH null, PA - [facility] 07/23/2022 10:53:25 Tdap 1 completed BRYAN DESMITH null, PA - [facility] 07/23/2022 10:53:25 Tdap 1 completed BRYAN DESMITH null, PA - [facility] 07/23/2022 10:53:25 Pneumococcal conjugate PCV 13 8 completed BRYAN DESMITH null, PA - [facility] 07/23/2022 10:53:25 Influenza, high-dose, trivalent, PF 9 completed BRYAN DESMITH null, PA - [facility] 07/23/2022 10:53:25 Influenza, split virus, trivalent, PF 0 completed BRYAN DESMITH null, PA - [facility] 07/23/2022 10:53:25 Influenza, split virus, trivalent, PF 5 completed BRYAN DESMITH null, PA - [facility] 07/23/2022 10:53:25 Influenza, split virus, trivalent, PF 1 completed BRYAN DESMITH null, PA - [facility] 07/23/2022 10:53:25 Past Encounters Encounter ID Performer Location Encounter Start Date Encounter Closed Date Diagnosis/Indication Diagnosis SNOMED-CT Code Diagnosis ICD10 Code Diagnosis [place] [id number] [place] [address] [place] [address] 07/23/2022 10:00:59 07/23/2022 13:26:08 Chronic cough 55241188 R05.3 Acute pain in face 64308 7001 R51.9 Subconjunc tival hemorrhage of right eye 5476385308 65969 H11.31 [id number] GAY DEGROOT [address] [place] [address] 06/04/2023 10:08:15 06/04/2023 10:52:32 Acute bronchitis 80674172 J20.9 Health Concerns Section Related Observation LastModified by Organization Detai ls LastModified Time None Recorded Concern Status LastModified by Organization Details LastModified Time None Recorded Advance Directives Directive None Recorded Payers Insurance Date Sequence Insurance Name Policy Number Policy Burgos Covered Member ID Burgos Member ID Guarantor Name 06/04/[address] [facility] [id number] Janet Banegas [id number] Janet Banegas Notes Date Note Type Note Provider Name and Address Organization Details Recorded Time 3 text/html CoughReported bypatient.source of patient informationInformation obtained from patient; Patient arrived at Urgent Care ambulatory Quality:symptoms worse with lying down; Mostly dry. Occasionally productive of clear sputum. Severity:moderate Duration:chronic; constant; Chronic since episode of bronchitis January 2022. Timing:constant Context:non-smoker Modifying Factors:Worse at night lying down. Associated Symptoms:no fever; no chills; no chest pain; no heartburn; no nausea; no vomiting; no edema; no wheezing; Minor post nasal drip.Notes:72 year old female with hx of HTN, DM controlled with metformin presenting for evaluation of a few different complaints. First she c/o a chronic dry cough after having bronchitis January of 2022 which was treated with azithromycin, albuterol inhaler and prednisone. Symptoms improved but her cough never completely resolved. She reports a frequent mostly dry cough which is worse at night when she is lying down. She saw her PCP and states she had a negative CXR last fall. Cough medication such as tessalon perles and over the counter cough medications don't help. No wheezing. No fever, chills, chest pain, shortness of breath. Occasionally she coughs up some white or clear sputum. No nasal congestion or post nasal drip. No ankle or leg swelling. No hx of heart failure. Her cough has been exacerbated by some of the blood pressure medications she has been on. Currently she takes HCTZ which does not affect her cough. The patient also woke up this morning with left maxillary swelling and soreness of her left upper gums. No specific tooth pain. No sore throat or trouble swallowing. She states that she also noted a hemorrhage of the right eye this morning. No visual disturbance, eye pain, foreign body sensation, chemical exposure or eye trauma. The rest of her ROS is unremarkable. Anna Bennett MD [address] [place], [address], [place] [facility] 07/23/2022 13:32:25 3 text/html CoughReported bypatient.Notes:73 y.o female pt presents with cough and congestion since 05/28. Pt denies cehst pain or SOB. GAY DEGROOT [address] [place], [address], [place] - [facility] 06/04/2023 17:21:16 OBGyn Episode No OBEpisode recorded.
--- OUTSIDE RECORDS SUMMARY | 2024-10-18 15:31 | XMS_ITS | Clinical Summary ---
Author Organization [facility] Address [address] [place] [phone] Phone Care Team Providers Care Professional Architect Name Role Phone Vikki Restrepo MD Primary Care Provider [phone] Allergies Active Allergy Reactions Criticality Noted Date Comments Kp Inhibitors Other (see comments) 10/23/2020 Amlodipine Other (see comments) 10/23/2020 Losartan Other (see comments) 10/23/2020 Medications glipiZIDE (GLUCOTROL XL) 2.5 MG 24 hr tablet Take 2.5 mg by mouth 1 (one) time each day 10/17/2020 Active metFORMIN XR (GLUCOPHAGE-XR) 500 MG 24 hr tablet Take 500 mg by mouth 12/06/2022 Active hydroCHLOROthia zide (MICROZIDE) 12.5 MG capsule Take 12.5 mg by mouth 1 (one) time each day 11/24/2022 Active olmesartan (BENICAR) 20 MG tablet Take 20 mg by mouth 1 (one) time each day 11/24/2022 Active pantoprazole (PROTONIX) 40 MG EC tablet Take 40 mg by mouth in the morning and 40 mg in the evening. Do not crush, chew, or split.. Active rosuvastatin (CRESTOR) 20 MG tablet Take 20 mg by mouth 1 (one) time each day Active Active Problems Problem Noted Date Diagnosed Date Anemia in chronic kidney disease 03/02/2024 Asthma 10/23/2020 Stage 3a chronic kidney disease 10/23/2020 Dyslipidemia 10/23/2020 Hypertension 10/23/2020 Metabolic syndrome X 10/23/2020 Renal artery stenosis 10/23/2020 Type 2 diabetes mellitus 10/23/2020 Encounters Date Type Department Care Team Description 09/01/2024 1:45 PM EDT [facility] Visit [facility] [address] [phone] Alyse Hernandez ARNP Stage 3a chronic kidney disease (HCC) (Primary Dx); Hypertension; Anemia in chronic kidney disease 08/06/2024 Orders Only [facility] [address] [phone] Alyse Hernandez ARNP Stage 3a chronic kidney disease (HCC); Hypertension; Anemia in chronic kidney disease from Last 3 Months Family History Medical History Relation Comments Diabetes Father Heart disease Father CAD Hypertension Father Autosomal Dominant Polycystic Kidney Disease Mot her Hypertension Mother Autosomal Dominant Polycystic Kidney Disease Sib ling brother, sister Relation Status Comments Father Mother Sibling Social History Tobacco Use Types Packs/Day Years Used Date Smoking Tobacco: Never Smokeless Tobacco: Never Tobacco Cessation:Counseling Given: Not Answered Alcohol Use Standard Drinks/Week Comments No 0 (1 standard drink = 0.6 oz pur e alcohol) Comments Unknown Sex and Gender Information Value Date Recorded Sex Assigned at Not on file Legal Sex Female 4:53 PM EST Gender Identity Not on file Sexual Orientation Not on file Last Filed Vital Signs Vital Sign Reading Time Taken Comments Blood Pressure 120/50 09/01/2024 1:34 PM EDT Pulse 64 09/01/2024 1:34 PM EDT Temperature - - Respiratory Rate - - Oxygen Saturation 99% 02/18/2023 12:53 PM EDT Inhaled Oxygen Concentration - - Weight 78.5 kg (173 lb) 09/01/2024 1:34 PM EDT Height 167.6 cm (5' 6 ) 10/22/2021 1:31 PM EDT Body Mass Index 27.92 10/22/2021 1:31 PM EDT Plan of Treatment Upcoming Encounters Date Type Department Care Team (Late st Contact Info) Description 2025 1:15 PM EDT Office Visit [facility] [address] [phone] Alyse Hernandez ARNP [address] [facility] [address] [place] [address] Health Maintenance Due Date Last Done Comments Diabetes: Ophthalmology Exam 07/08/2020 Diabetes: Pedal Pulse Checked 07/08/2020 Diabetes: Sensory Foot Exam 07/08/2020 Diabetes: Visual Foot Exam 07/08/2020 Diabetes: Hemoglobin A1C 05/20/2023 02/18/2023 Influenza Vaccine (Season Ended) 2025 04/05/2022, 03/29/2022, 05/07/2021, Additional history exists Pneumococcal Vaccine: 50+ Years Completed 05/07/2021, 02/13/2021, 03/04/2018 Pneumococcal Vaccine: Peds (0 to 5 Years) and At-Risk Patients (6 to 49 Years) Discontinued 05/07/2021, 02/13/2021, 03/04/2018 Hepatitis B Vaccine Aged Out No longe r eligible based on patient's age to complete this topic Procedures Procedure Name Priority Date/Time Associated Diagnosis Comments PTH, INTACT Routine 08/26/2024 2:09 PM EDT Stage 3a chronic kidney disease (HCC) Hypertension Anemia in chronic kidney disease PROTEIN / CREATININE RATIO, URINE Routine 08/26/2024 2:09 PM EDT Stage 3a chronic kidney disease (HCC) Hypertension Anemia in chronic kidney disease CBC Routine 08/26/2024 2:09 PM EDT Stage 3a chronic kidney disease (HCC) Hypertension Anemia in chronic kidney disease RENAL FUNCTION PANEL Routine 08/26/2024 2:09 PM EDT Stage 3a chronic kidney disease (HCC) Hypertension Anemia in chronic kidney disease FERRITIN Routine 08/26/2024 2:08 PM EDT IRON PANEL (FE, TIBC, TSAT) Routine 08/26/2024 2:08 PM EDT HEMOGLOBIN A1C Routine 02/18/2023 1:29 PM EDT Stage 3a chronic kidney disease (HCC) Type 2 diabetes mellitus with other diabetic kidney complication (HCC) from Last 3 Months or Most Recently Relevant to Health Maintenance Results * Urine Protein / creatinine ratio (08/26/2024 2:09 PM EDT) Creatinine, Ur 196.2 Not Estab. mg/dL [facility] Protein, Ur 11.5 Not Estab. mg/dL [facility] Urine Protein/Creatin ine Ratio 59 0 - 200 mg/g creat [facility] Urine (Urine, Clean Catch) 08/26/2024 2:09 PM EDT 08/26/2024 us Alyse Hernandez [facility] URINE ORDERABLES Final Result [facility] [address] [place] [address] * (ABNORMAL) CBC (08/26/2024 2:09 PM EDT) WBC 3.3(L) 3.4 - 10.8 x10E3/uL [facility] RBC 3.21(L) 3.77 - 5.28 x10E6/uL [facility] Hemoglobin 10.1(L) 11.1 - 15.9 g/dL [facility] Hematocrit 29.9(L) 34.0 - 46.6 % [facility] MCV 93 79 - 97 fL [facility] MCH 31.5 26.6 - 33.0 pg [facility] MCHC 33.8 31.5 - 35.7 g/dL [facility] RDW 13.0 11.7 - 15.4 % [facility] Platelets 192 150 - 450 x10E3/uL [facility] Blood (Blood, Venous) 08/26/2024 2:09 PM EDT 08/26/2024 Alyse [facility] LAB BLOOD ORDERABLES Final Result Performing Organization Address City/[facility]/ZIP Co de Phone Number [facility] [address] [place] [address] * PTH, intact (08/26/2024 2:09 PM EDT) Pathologist [facility] PTH 56 15 - 65 pg/mL [facility] Blood (Blood, Venous) 08/26/2024 2:09 PM EDT 08/26/2024 [facility] LAB BLOOD ORDERABLES Final Result Performing Organization Address City/[facility] de Phone Number [facility] [address] [place] [address] * (ABNORMAL) Renal function panel (08/26/2024 2:09 PM EDT) Glucose 132(H) 70 - 99 mg/dL [facility] BUN 35(H) 8 - 27 mg/dL [facility] Creatinine 1.49(H) 0.57 - 1.00 mg/dL [facility] eGFR CKD-EPI CR 2020 36(L) >59 mL/min/1.7 3 [facility] BUN/Creatinine Ratio 23 12 - 28 [facility] Sodium 137 134 - 144 mmol/L [facility] Potassium 4.2 3.5 - 5.2 mmol/L [facility] Chloride 101 96 - 106 mmol/L [facility] Bicarbonate (CO2) 19(L) 20 - 29 mmol/L [facility] Calcium 9.2 8.7 - 10.3 mg/dL [facility] Albumin 4.5 3.8 - 4.8 g/dL [facility] Phosphorus 4.1 3.0 - 4.3 mg/dL [facility] Blood (Blood, Venous) 08/26/2024 2:09 PM EDT 08/26/2024 Alyse [facility] LAB BLOOD ORDERABLES Final Result Performing Organization Address City/[facility]/ZIP Co de Phone Number [facility] [address] [place] [address] * Iron Panel (Fe, TIBC, TSAT) (08/26/2024 2:08 PM EDT) TIBC 394 250 - 450 ug/dL [facility] UIBC 301 118 - 369 ug/dL [facility] Iron 93 27 - 139 ug/dL [facility] Iron Saturation (TSat) 24 15 - 55 % [facility] 08/26/2024 2:08 PM EDT 08/26/2024 Aly[facility] LAB BLOOD ORDERABLES Final Result [facility] [address] [place] [address] * (ABNORMAL) Ferritin (08/26/2024 2:08 PM EDT) Ferritin 172(H) 15 - 150 ng/mL [facility] 08/26/2024 2:08 PM EDT 08/26/2024 us Alyse [facility] LAB BLOOD ORDERABLES Final Result [facility] [address] [place] [address] * (ABNORMAL) Hemoglobin A1c (02/18/2023 1:29 PM EDT) Hemoglobin A1C 6.4(H) (4.0-5.6) % [facility] Comment: MONITORING: In known diabetic patients, hemoglobin A1c targets should be discussed with health care provider. DIAGNOSTIC USE: ??The [place] Diabetes Association (ADA) and the World Health Organization (WHO) recommend the use of HbA1c to diagnose diabetes using a threshold of 6.5%. Patients who have an HbA1c between 5.7% and 6.4% are considered at increased risk for developing diabetes in the future. CAUTION: Falsely low HbA1c results may be observed in patients with hemolytic anemia, homozygous forms of abnormal hemoglobin (e.g. SS, CC, SC), , recent blood loss or hemoglobin F greater than 7%. Fructosamine may be used as an alternate test in these cases. REFERENCE: ADA: Standards of Medical Care in Diabetes 2020, The Journal of Clinical and Applied Research and Education Volume 43, Supplement 1 Testing performed or reported by [facility], a Service of [facility], [address] [place] [address] Rahul Catalan MD, Traffic Expert [facility]# [id number] Blood (Blood, Venous) 02/18/2023 1:29 PM EDT 02/18/2023 1:31 PM EDT us Prosper Santiago MD LAB BLOOD ORDERABLES Final Re sult [facility] from Last 3 Months or Most Recently Relevant to Health Maintenance Insurance [facility] Care Teams Professional Architect Relationship Specialty Start Date End Date Vikki Restrepo MD [address] [place] [address] PCP - General 06/18/20
== END 2024-10-18 14:21 | disposition home or self-care (01) ==
LOC: HO.MAMMO 14:20
PROVIDERS: PCP Internal Medicine; Visit Provider Internal Medicine
DX: Z12.31 Encounter for screening mammogram for malignant neoplasm of breast (principal)
CPT/HCPCS: 77063; 77067

== ENCOUNTER → 2024-10-18 14:30 | Outpatient (BNV) | payer OTHER, SELFPAY | PROVIDERS: PCP Internal Medicine; Visit Provider Internal Medicine | DX: Z12.31 Encounter for screening mammogram for malignant neoplasm of breast (principal) | CPT/HCPCS: 77063; 77067 ==

== ENCOUNTER 2024-11-09 13:54 | Outpatient (REF) | payer OTHER, SELFPAY ==
--- OUTSIDE RECORDS SUMMARY | 2024-11-09 14:00 | XMS_ITS | Clinical Summary ---
Author Organization [facility] Address [address] [place] [address] Care Team Providers Care Shell Mold Bonding Machine Operator Name Role Phone Unavailable Primary Care Provider [...]
[2024-11-09 14:35] LABS: Estimated Average Glucose 134 mg/dL; Hemoglobin A1c % 6.3 % (<6.0); Total Hemoglobin (HGBA1C) 2760.9501 umol/L
[2024-11-09 15:40] LABS: Alanine Aminotransferase 13 U/L (0-31); Albumin Level 4.4 g/dL (3.5-5.0); Alkaline Phosphatase 73 U/L (39-117); Anion Gap 11 (12-20); Aspartate Amino Transferase 23 U/L (5-31); Bilirubin Total 0.4 mg/dL (0.0-1.0); Blood Urea Nitrogen 37 mg/dL (9-16); Calcium 9.3 mg/dL (8.4-10.2); Carbon Dioxide 26 mmol/L (22-29); Chloride 108 mmol/L (96-108); Estimated Glomerular Filt Rate 30; Glucose Random 93 mg/dL (60-115); Potassium 4.5 mmol/L (3.3-5.1); Sodium 140 mmol/L (135-145); Total Protein 7.1 g/dL (6.5-8.0)
== END 2024-11-09 13:55 | disposition home or self-care (01) ==
LOC: HO.LAB 13:54
PROVIDERS: PCP Internal Medicine; Visit Provider Internal Medicine
DX: D50.8 Other iron deficiency anemias (principal); E11.22 Type 2 diabetes mellitus with diabetic chronic kidney disease; E78.00 Pure hypercholesterolemia, unspecified; I10 Essential (primary) hypertension
CPT/HCPCS: 36415; 80053; 83036

== ENCOUNTER 2024-12-23 08:45 | Outpatient (REF) | payer OTHER, SELFPAY ==
--- NOTE | ~2024-12-23 | US_ITS ---
EXAMINATION: MM DIAGNOSTIC DIGITAL BREAST TOMOSYNTHESIS, LEFT Left Limited breast ultrasound. CLINICAL INFORMATION: Call back from screening for asymmetry in the lower left breast on MLO view. COMPARISON: Mammography: Priors on PACS. TECHNIQUE: Digital breast tomosynthesis is performed in both the craniocaudal and mediolateral oblique views along with computer-aided detection (CAD). Synthesized 2D images are generated from the tomosynthesis. FINDINGS: The breasts are heterogeneously dense, which may obscure small masses (ACR BI-RADS breast composition Category c). Asymmetry lower left breast on MLO view effaces and appears similar to multiple prior mammograms dating back to 2019. No suspicious calcifications or other abnormal findings. Targeted color Doppler ultrasound scanning in the lower outer quadrant demonstrates incidental minimally complicated cysts versus solid mass at 2:00 10 cm from nipple measuring 5 x 3 x 4 mm. Otherwise there is normal fibronodular breast tissue. US/US breast LT limited mamm only IMPRESSION: Incidental minimally complicated cyst versus solid mass at 2:00 10 cm from the nipple recommend 6 month follow-up ultrasound for further evaluation of stability. ASSESSMENT: BI-RADS BI-RADS 3 - Probably benign finding(s) - 6 month follow-up suggested RECOMMENDATION: 6 Month F/U Results were provided to the patient at time of visit by the technologist. This patient's information was entered into a reminder system with a target due date for their next mammogram. Electronically signed by: Joyce Mcbride DO 12/23/2024 08:37 PM EDT
--- OUTSIDE RECORDS SUMMARY | 2024-12-23 08:49 | XMS_ITS | Data Portability ---
Author Organization [facility], [address] Address [address] [place] [address] Assessment No assessment recorded. Plan of Treatment Reminders Order Date Submit Date Provider Last Modified By Organization Details Last Modified Time Details Appointments None recorded. Lab None recorded. Referral None recorded. Procedures None recorded. Surgeries None recorded. Imaging XR, chest, 2 view 2022 023 [email or web address] [facility], [address] [facility], [place], [address], 4 15:55:54 Medication Orders benzonatate 200 mg capsule 2022 023 [facility] #[id number], [address] [place], [address], 3 10:38:21 albuterol sulfate HFA 90 mcg/actuati on aerosol inhaler 2022 023 [facility]1157, [address] [place], [address], 3 10:38:20 Augmentin 875 mg-125 mg tablet 2022 023 [facility]1157, [address] [place], [address], 3 10:38:21 Zithromax Z-Brett 250 mg tablet 2022 023 [facility] #1157, [address] [place], [address], 3 10:38:21 amoxicillin 875 mg tablet 2022 023 [facility] #[id number], [address] [facility], [place], [address], 10:24:09 Patient TargetsNo targets recorded. Patient Instructions Encounter Date Encounter Id Patient Instructions Last Modified By Organization Details Last Modified Time 07/23/2022 [id number] cough: care instructions [email or web address] Not available 07/23/2022 13:13:55 chronic cough: c are instructions [email or web address] Not available 07/23/2022 13:13:56 tooth and gum pa in: care instructions [email or web address] Not available 07/23/2022 13:13:56 subconjunctival hemorrhage: care instructions [email or web address] Not available 07/23/2022 13:19:06 subconjunctival hemorrhage information [email or web address] Not available 07/23/2022 13:19:06 Your gum pain [...] Emergency Medical evaluation for any worsening symptoms. [email or web address] Not available 07/23/2022 13:18:49 06/04/2023 [id number] cough: care instructions [email or web address] Not available 06/04/2023 10:38:17 acute bronchitis education [email or web address] Not available 06/04/2023 10:38:17 bronchitis: care instructions [email or web address] Not available 06/04/2023 10:38:17 Acute bronchitis is [...] Pain 3. Wheezing 4. Coughing up Blood [email or web address] Not available 06/04/2023 10:38:26 Reason for Referral None Reported. Problems Name Problem SNOMED Code Status Onset Date Resolution Date Notes Provider Name and Address Organization Details Recorded Time Diabetes mellitus 63543435 Active 2022 BRYAN weiss PA - [facility] 3 10:54:43 Hypertensive disorder 26696343 Active 2022 BRYAN weiss PA - [facility] 3 10:54:49 Problem Notes None recorded. Procedures Surgical History Date Name Laterality Status Provider Name and Address Organization Details Recorded Time Hysterectomy/ bladder repair completed BRYAN BOWLING PA - [email or web address] 07/23/2022 10:55:36 Imaging Results None recorded. Procedure Notes None recorded. Medical Equipment None Reported. Allergies Allergen ID Allergen Name Allergen Category Reaction Reaction Severity Criticality Documentation Date Start Date Code Code System Note Provider Name and Address Organization Details Recorded Time 044192 Bactrim medicatio n rash Not available Not available 07/23/2022 72719 9 RxNorm GAY Levin - [facility] [...] height Body mass index (BMI) Body weight Respiratory rate Body temperature Heart rate Oxygen saturation Oxygen saturation in Arterial blood by Pulse oximetry Systolic And Diastolic Provider Name and Address Organization Details Last Updated DateTime 3 167.64 cm 29.1 kg/m2 76283.6 3 g 20 /min 97.3 [degF] 78 /min 97 % 97 % 139/73 mm[Hg] BRYAN BOWLING PA - [facility] 3 10:57:43 Date Recorded Body height Body mass index (BMI) Body weight Oxygen saturation Oxygen saturation in Arterial blood by Pulse oximetry Heart rate Respiratory rate Body temperature Systolic And Diastolic Provider Name and Address Organization Details Last Updated DateTime 3 167.64 cm 29.1 kg/m2 53466.6 3 g 99 % 99 % 78 /min 18 /min 98.2 [degF] 145/66 mm[Hg] Mesha RASHID [facility] 3 10:25:00 Social History Question Answer Notes LastModified by Organizat ion Details LastModified Time Tobacco Smoking Status Never Smoker BRYAN weiss PA - [facility] 07/23/2022 10:55:29 Have [...] SNOMED-CT Code Diagnosis ICD10 Code Diagnosis Note [id number] [place] [facility] [address] [place] [address] 07/23/2022 10:00:59 07/23/2022 13:26:08 Chronic cough 06658001 R05.3 Acute pain in face 33326 7001 R51.9 Subconjunc tival hemorrhage of right eye 1240917038 84975 H11.31 [id number] [facility]OT [address] [address] [place] [address] 06/04/2023 10:08:15 06/04/2023 10:52:32 Acute bronchitis 63511085 J20.9 Health Concerns Section Related Observation LastModified by Organization Detai ls LastModified Time None Recorded Concern Status LastModified by Organization Details LastModified Time None Recorded Advance Directives Directive None Recorded Payers Insurance Date Sequence Insurance Name Policy Number Policy Burgos Covered Member ID Burgos Member ID Guarantor Name 06/04/2023 1 [facility] [id number] Janet Banegas [id number] Janet Banegas Notes Date Note Type Note [...] unremarkable. Anna Bennett MD [address] [place], [address], PA - [email or web address] 07/23/2022 13:32:25 3 text/html CoughReported bypatient.Notes:73 y.o female pt presents with cough and congestion since 05/28. Pt denies cehst pain or SOB. GAY DEGROOT [address] [place], [address], [place] - [facility] 06/04/2023 17:21:16 OBGyn Episode No OBEpisode recorded.
--- OUTSIDE RECORDS SUMMARY | 2024-12-23 08:49 | XMS_ITS | Clinical Summary ---
Author Organization [facility] ity Address [address] [place] [address] Care Team Providers Care Java Programming Professor Name Role Phone Unavailable Primary Care Provider [...] - 1-dose 75+ series) 2023 COVID-19 Vaccine (1 - 2023-2 5 season) 2024 Influenza Vaccine (#1) 2025 HIB Vaccines Aged Out No longer [...]
--- OUTSIDE RECORDS SUMMARY | 2024-12-23 08:49 | XMS_ITS | Clinical Summary ---
Author Organization [facility] Address [address] [place] [phone] Phone Care Team Providers Care Property Preservation Specialist Name Role Phone Vikki Restrepo MD Primary Care Provider Allergies Active Allergy Reactions Criticality Noted Date [...] stenosis 10/23/2020 Type 2 diabetes mellitus 10/23/2020 Family History Medical History Relation Comments Diabetes [...] [facility] [address] [phone] Alyse Hernandez ARNP [address] [phone] Health Maintenance Due Date Last Done Comments Diabetes: Ophthalmology Exam 07/08/2020 Diabetes: Pedal Pulse Checked 07/08/2020 Diabetes: Sensory Foot Exam 07/08/2020 Diabetes: Visual Foot Exam 07/08/2020 Diabetes: Hemoglobin A1C 05/20/2023 02/18/2023 Influenza Vaccine (#1) 2025 2, 03/29/2022, 05/07/2021, Additional history exists Pneumococcal Vaccine: 50+ Years Completed 05/07/2021, 02/13/2021, 03/04/2018 Pneumococcal Vaccine: Peds (0 to 5 Years) and At-Risk Patients (6 to 49 Years) Discontinued 05/07/2021, 02/13/2021, 03/04/2018 Hepatitis B Vaccine Aged Out No longe r eligible based on patient's age to complete this topic Procedures Procedure Name Priority Date/Time Associated Diagnosis Comments HEMOGLOBIN A1C Routine 02/18/2023 1:29 PM EDT Stage 3a chronic kidney disease (HCC) Type 2 diabetes mellitus with other diabetic kidney complication (HCC) from Last 3 Months or Most Recently Relevant to Health Maintenance Results * (ABNORMAL) Hemoglobin A1c (02/18/2023 1:29 PM EDT) Hemoglobin A1C 6.4(H) (4.0-5.6) % [facility] Comment: MONITORING: In known diabetic patients, hemoglobin A1c targets should be discussed with health care provider. DIAGNOSTIC USE: The [place] Diabetes Association (ADA) and the World Health [...] Supplement 1 Testing performed or reported by [facility], a Service of [facility], [address] [place] [address] Rahul Catalan MD, Instructional Support Specialist [facility]# [id number] Blood specimen (specimen) Venous blood / Unknown 02/18/2023 1:29 PM EDT 02/18/2023 1:31 PM EDT us Prosper Santiago MD LAB BLOOD ORDERABLES Final Re sult [facility] from Last 3 Months or Most Recently Relevant to Health Maintenance [place] [address] Health Care Teams Property Preservation Specialist Relationship Specialty Start Date End Date Vikki Restrepo MD [address] [place] [address] PCP - General 06/18/20
== END 2024-12-23 08:46 | disposition home or self-care (01) ==
LOC: HO.MAMMO 08:45
PROVIDERS: PCP Internal Medicine; Visit Provider Internal Medicine
DX: N64.89 Other specified disorders of breast (principal)
CPT/HCPCS: 76642; 77061; 77065

== ENCOUNTER → 2024-12-23 09:00 | Outpatient (BNV) | payer OTHER, SELFPAY | PROVIDERS: PCP Internal Medicine; Visit Provider Internal Medicine | DX: N63.23 Unspecified lump in the left breast, lower outer quadrant (principal) | CPT/HCPCS: 76642; 77061; 77065 ==

== ENCOUNTER 2025-02-09 12:46 | Outpatient (REF) | payer OTHER, SELFPAY ==
[2025-02-09 13:42] LABS: Hemoglobin A1C 111.4990 umol/L; Total Hemoglobin (HGBA1C) 2372.6270 umol/L
[2025-02-09 13:51] LABS: Alanine Aminotransferase 15 U/L (0-31); Albumin Level 4.5 g/dL (3.5-5.0); Alkaline Phosphatase 77 U/L (39-117); Anion Gap 13 (12-20); Aspartate Amino Transferase 35 U/L (5-31); Blood Urea Nitrogen 44 mg/dL (9-16); Calcium 9.4 mg/dL (8.4-10.2); Carbon Dioxide 23 mmol/L (22-29); Chloride 109 mmol/L (96-108); Cholesterol 150 mg/dL (<200); Estimated Glomerular Filt Rate 31; HDL Cholesterol 37 mg/dL (>40); Potassium 4.9 mmol/L (3.3-5.1); Sodium 140 mmol/L (135-145); Total Protein 7.2 g/dL (6.5-8.0); Triglycerides 288 mg/dL (<150)
--- OUTSIDE RECORDS SUMMARY | 2025-02-09 14:01 | XMS_ITS | Clinical Summary ---
Author Organization [facility] ity Address [address] [place] [address] Care Team Providers Care Sandal Parts Assembler Name Role Phone Unavailable Primary Care Provider [...] 1998 Zoster Vaccines (1 of 2) 1998 Falls Risk Assessment 05/11/2022 Hepatitis C Screening 05/11/2022 Osteoporosis Screening (Bone Density Screening) 05/11/2022 Social Influencers of Health Screening 05/11/2022 RSV Immunization Adult Patie nts (1 - 1-dose 75+ series) 2023 Depression Screening 06/08/2024 COVID-19 Vaccine (1 - 2023-2 5 season) 2025 Influenza Vaccine (#1) 2025 HIB Vaccines Aged [...]
--- OUTSIDE RECORDS SUMMARY | 2025-02-09 14:02 | XMS_ITS | Clinical Summary ---
Author Organization [facility] Address [address] [place] [phone] Phone Care Team Providers Care Hand Tube Bender Name Role Phone Vikki Restrepo MD Primary Care Provider [phone] Allergies Active Allergy Reactions Criticality Noted Date [...] Encounters Date Type Department Care Team Description 02/06/2025 Orders Only [facility] [address] [phone] Alyse Hernandez ARNP Stage 3a chronic kidney [...] and [facility] [address] [phone] Alyse Hernandez ARNP [address] [phone] Health Maintenance Due Date Last Done Comments [...] PM EDT) Hemoglobin A1C 6.4(H) (4.0-5.6) % [facility] Comment: MONITORING: In known diabetic patients, hemoglobin A1c targets should be discussed with health care provider. DIAGNOSTIC USE: The [place] Diabetes Association (ADA) and the World Health [...] Supplement 1 Testing performed or reported by [facility], a Service of [facility], [address] [place] [address] Rahul Catalan MD, Compugraph Operator [facility]# [id number] Blood specimen (specimen) Venous blood / Unknown 02/18/2023 1:29 PM EDT 02/18/2023 1:31 PM EDT Prosper Santiago MD LAB BLOOD ORDERABLES Final Re sult [facility] from Last 3 Months or Most Recently Relevant to Health Maintenance Insurance Health Care Teams Hand Tube Bender Relationship Specialty Start Date End Date Vikki Restrepo MD [address] [place] [address] PCP - General 06/18/20
--- OUTSIDE RECORDS SUMMARY | 2025-02-09 14:02 | XMS_ITS | Encounter Summary ---
Author Organization [facility] Address [address] [address] Phone Care Team Providers Care Operations And Maintenance Technician Name Role Phone Vikki Restrepo MD Primary Care Provider [phone] Encounter Details Date Type Department Care Team (Late st Contact Info) Description 02/06/2025 Orders Only [facility] [address] [phone] Alyse Hernandez ARNP [address] [phone] Stage 3a chronic kidney disease (HCC); Hypertension; Anemia in chronic kidney disease Social History Tobacco Use Types Packs/Day Years Used Date Smoking Tobacco: Never Smokeless Tobacco: Never Alcohol Use Standard Drinks/Week Comments No 0 (1 standard drink = 0.6 oz pur e alcohol) Comments Unknown Sex and Gender Information Value Date Recorded Sex Assigned at Not on file Legal Sex Female 4:53 PM EST Gender Identity Not on file Sexual Orientation Not on file documented as of this encounter Plan of Treatment Upcoming Encounters Date Type Department Care Team (Late st Contact Info) Description 2025 1:15 PM EDT Office Visit [facility] [address] [phone] Alyse Hernandez ARNP [address] [phone] documented as of this encounter Visit Diagnoses Diagnosis Stage 3a chronic kidney disease (HCC) Hypertension Anemia in chronic kidney disease documented in this encounter Care Teams Operations And Maintenance Technician Relationship Specialty Start Date End Date Vikki Restrepo MD [address] [place] [address] PCP - General 06/18/20 documented as of this encounter
== END 2025-02-09 12:47 | disposition home or self-care (01) ==
LOC: HO.LAB 12:46
PROVIDERS: PCP Internal Medicine; Visit Provider Internal Medicine
DX: Z00.01 Encounter for general adult medical examination with abnormal findings (principal); E11.22 Type 2 diabetes mellitus with diabetic chronic kidney disease; I12.9 Hypertensive chronic kidney disease with stage 1 through stage 4 chronic kidney disease, or unspecified chronic kidney disease; N18.9 Chronic kidney disease, unspecified; E78.00 Pure hypercholesterolemia, unspecified
CPT/HCPCS: 36415; 80053; 80061; 82043; 82570; 83036